=== PATIENT | female | born 1930 | race Caucasian/White ===

== ENCOUNTER 2016-06-04 12:53 | Emergency (ER) | payer OTHER, MEDICARE ==
[~2016-06-04] VITALS: Ht 167.6 cm; Wt 81.6 kg
[~2016-06-04 12:53] MED LIST: AUGMENTIN 500-1 EACH PO; ENALAPRIL MALEA20 M1 PO; LASIX20 M1 PO; LISINOPRIL30 M1 PO; PREDNISONE5 M1 PO; TYLENOL WITH C1 EACH PO; TYLENOL325 M1 PO
--- NOTE | 2016-06-04 16:18 | ED GENERAL ADULT ---
History of Present Illness General Chief Complaint: Lower Extremity Problems Stated Complaint: LEGS SWOLLEN, "PAINFUL TO THE TOUCH" Source: patient, family Exam Limitations: no limitations Allergies Coded Allergies: epinephrine (UNKNOWN PER PT 06/04/16) Reconcile Medications Amlodipine Besylate 5 MG TABLET 1 TAB PO DAILY BP (Reported) Aspirin (Ecotrin*) 81 MG TABLET.DR 1 TAB PO DAILY HEART/BLOOD (Reported) Cephalexin (Keflex) 250 MG CAPSULE 1 CAP PO 4 TIMES/DAY PRN CELLULITIS Enalapril Maleate 20 MG TABLET 1 TAB PO DAILY HEART (Reported) Furosemide (Lasix) 40 MG TABLET 1 TAB PO DAILY LEG EDEMA TAKE X FOUR DAYS Furosemide (Lasix) 20 MG TABLET 1 TAB PO DAILY Blood pressure Triage Note: PT STATES THAT SHE FELL YESTERDAY, LOSS HER BALANCE , WOKE THIS AM WITH BLE EDEMA. DENIES SOB. Triage Nurses Notes Reviewed? yes Onset: Abrupt Duration: constant Timing: single episode today Severity: moderate Severity Numbers: 5 No Modifying Factors: none HPI: Patient is a 86-year-old female with a past medical history of hypertension and mild leg swelling which she takes 20 mg of Lasix administered earlier today who presents emergency room with son in which patient lives in private residence by herself and which yesterday patient was in her normal state of health and is not using her cane in which she states that she misstepped and lost her balance and subsequent fell on her buttock region and subsequent fell backward striking the back of her head mildly to the floor. Patient states that she was on the ground for approximately 2 minutes used her lifeline in which then the son who lives next door came to patient stated immediately palpation up which she has had no pain no headache no neck pain back pain and is otherwise was able to AMBULATE without complications yesterday Patient however states that this morning she woke up and her legs were warm to touch painful and had complaints of significant increased swelling to the bilateral below the knee to the foot. Patient denies any mechanism injury to the lower extremities from the fall. Patient denies any fever chills shortness breath cough chest pain or pain jaw pain. Patient is able to ambulate with a cane without complications and has steady gait prior to arrival (AUDIE PATHAK,TRACEE) Vital Signs & Intake/Output Vital Signs & Intake/Output ED Intake and Output 06/05 0000 06/04 1200 Intake Total Output Total Balance Patient 180 lb Weight Past History Travel History Traveled to [place] past 21 day No Medical History Any Pertinent Medical History? see below for history Neurological: NONE EENT: NONE Cardiovascular: hypertension Respiratory: NONE Gastrointestinal: NONE Hepatic: NONE Renal: NONE Musculoskeletal: osteoarthritis, rheumatoid arthritis Psychiatric: anxiety Endocrine: NONE Blood Disorders: NONE Cancer(s): NONE CAVING GUIDE/Reproductive: HYSTERECTOMY History of MRSA: No History of VRE: No History of CDIFF: No Pneumonia Vaccine: 03/23/10 Surgical History Surgical History: hysterectomy, BILAT KNEE REPLACEMENT, L SHOULDER REPAIR Psychosocial History Who do you live with Patient/Self Services at Home None What is your primary language Kazakh Tobacco Use: Never used ETOH Use: denies use Illicit Drug Use: denies illicit drug use Family History Family History, If Any: SISTER FH: diabetes mellitus Hx Contributory? No (TRACEE BENTLEY) Review of Systems Review of Systems Constitutional: Reports: no symptoms. EENTM: Reports: no symptoms. Respiratory: Reports: no symptoms. Cardiovascular: Reports: see HPI, peripheral edema. GI: Reports: no symptoms. Genitourinary: Reports: no symptoms. Musculoskeletal: Reports: no symptoms. Skin: Reports: see HPI, erythema. Neurological/Psychological: Reports: no symptoms. Hematologic/Endocrine: Reports: no symptoms. Immunologic/Allergic: Reports: no symptoms. All Other Systems: Reviewed and Negative (TRACEE BENTLEY) Physical Exam Physical Exam General Appearance: no apparent distress, alert, comfortable Peripheral Pulses: 2+ dorsalis pedis (R), 2+ dorsalis pedis (L) Comments: Well-developed well-nourished person in no acute distress HEENT: Normal EENT exam, Neck: Supple, no lymphadenopathy, normal range of motion without pain or tenderness Back: Nontender, no CVA tenderness. Cardiovascular: Regular rate and rhythms no murmurs rubs or gallops, normal JVP Respiratory: Chest nontender. No respiratory distress.breath sounds clear to auscultation bilaterally Abdomen: Soft, nontender nondistended, no appreciable organomegaly. Normal bowel sounds. No ascites Extremity: +2 lower EXTREMITY bilateral nonpitting edema with below the knee and above the ankle erythema warmth and tenderness and swelling, no calf tenderness to palpation, normal and equal pulses. Lower extremity dermatomes intact pedal pulse +2 capillary refill less than 2 seconds Neuro: Alert oriented x3, motor sensory normal, Skin: No appreciable rash on exposed skin, skin is warm and dry. Psych: Mood and affect is normal, memory and judgment is normal. Core Measures ACS in differential dx? No CVA/TIA Diagnosis: No Severe Sepsis Present: No Septic Shock Present: No (TRACEE BENTLEY) Progress Differential Diagnoses I considered the following diagnoses in my evaluation of the patient: [ Cellulitis, DVT, abscess, compartment syndrome, CHF, nephritis, fracture] Diagnostic Imaging: Viewed by Me: Radiology Read, Ultrasound. Radiology Impression: no acute abnormality Initial ED EKG: none Comments: PATIENT: COLTON GIRON PRESENT AGE: 86 PATIENT ACCOUNT NO: [id number] : 32 LOCATION: [facility] ORDERING PHYSICIAN: TRACEE PATHAK SERVICE DATE: 06/04/16 EXAM TYPE: US - US-EXT BILAT VENOUS DOPPLER EXAMINATION: US TRIPLEX LOWER EXTREMITY, BILATERAL CLINICAL INFORMATION: Bilateral lower extremity swelling. COMPARISON: Ultrasound of the bilateral lower extremity veins 08/28/2015. TECHNIQUE: Color-flow triplex imaging with spectral analysis and compression Doppler were performed on the bilateral lower extremities. FINDINGS: Respiratory variation, normal compression and augmented flow are noted throughout the bilateral lower extremities. The visualized common femoral vein, femoral vein, profunda femoral vein, popliteal vein and mid calf peroneal and posterior tibial venous segments show no evidence of deep venous thrombosis. A 1.3 x 0.6 x 1.5 cm Howard's cyst is identified within the left popliteal fossa. IMPRESSION: No evidence of deep venous thrombosis involving the bilateral lower extremities. A 1.3 x 0.6 x 1.5 cm Howard's cyst is identified within the left popliteal fossa. PATIENT: COLTON GIRON PRESENT AGE: 86 PATIENT ACCOUNT NO: [id number] : 32 LOCATION: ER ORDERING PHYSICIAN: TRACEE PATHAK SERVICE DATE: 06/04/16 EXAM TYPE: RAD - XRY-PORTABLE CHEST XRAY EXAMINATION: XR PORTABLE CHEST CLINICAL INFORMATION: Lower extremity swelling. Evaluate for congestive heart failure. COMPARISON: Portable chest x-ray 08/27/2015. TECHNIQUE: Portable view of the chest was obtained. FINDINGS: The lungs are well-expanded and clear without focal airspace consolidation. No pleural effusions or pneumothoraces are identified. Cardiomediastinal contours are within normal limits. Soft tissues are unremarkable. No acute osseous abnormality is identified. Degenerative changes of the bilateral glenohumeral joints, left greater than right. Surgical screw along the left humeral head. Posterolateral deformity involving the distal left clavicle, adjacent to the left acromioclavicular joint, grossly unchanged. IMPRESSION: No acute pulmonary abnormality. No findings indicative of congestive heart failure. (TRACEE BENTLEY) Plan of Care: Orders Procedure Date/time Status BLOOD CULTURE 06/04 1616 Active COMPREHENSIVE METABOLIC PANEL 06/04 1615 Complete CBC WITHOUT DIFFERENTIAL 06/04 1615 Complete Laboratory Tests 06/04/161626: Anion Gap 12, Estimated GFR > 60, BUN/Creatinine Ratio 23.8, Glucose 95, Calcium 9.6, Total Bilirubin 0.6, AST 31, ALT 27, Alkaline Phosphatase 76, Total Protein 7.1, Albumin 4.2, Globulin 2.9, Albumin/Globulin Ratio 1.4, CBC w Diff NO MAN DIFF REQ, RBC 4.55, MCV 84.6, MCH 28.2, RDW 14.7 H, MPV 8.1, Gran % 62.6, Lymphocytes % 29.1, Monocytes % 5.1, Eosinophils % 2.3, Basophils % 0.9, Absolute Granulocytes 4.6, Absolute Lymphocytes 2.1, Absolute Monocytes 0.4, Absolute Eosinophils 0.2, Absolute Basophils 0.1, PUBS MCHC 33.3 Microbiology 06/04 1635 BLOOD: Blood Culture - RECD 06/04 1616 BLOOD: Blood Culture - RECD Patient comes in no apparent distress and denies any respiratory complaints. Chest x-ray is unremarkable no concerns of CHF at this time. Patient had bilateral lower extremity concerns of cellulitis no concerns of DVT at this time ultrasound was negative for results I discussed disposition and plan with family and patient and which they requested that they wanted to return home and manage the cellulitis and swelling at home. I discussed disposition and plan with Dr. Santo who agrees with disposition and plan patient had normal steady gait on discharge with cane Patient was strongly advised to follow discharge instructions and she will comply SON Christine comfortable with disposition plan as well (TRACEE BENTLEY) Departure Departure Disposition: HOME OR SELF CARE Condition: Stable Clinical Impression Primary Impression: Cellulitis of left leg Secondary Impressions: Cellulitis of leg, right, Leg edema Referrals: DELL WHITE,NICOLE Squires (PCP/Family) Additional Instructions: As discussed continue to always use your cane for fall prevention. Begin to elevate YOUR feet for swelling. Begin a prescription of Lasix as directed for the full course and after the prescription runs out resume previous Lasix prescription. Begin the prescription of Keflex as directed for the full course. Please follow-up with your primary care doctor in 2 days if she cannot be seen return to emergency room. If symptoms worsen or if you develop a new concerning symptom return to the emergency room immediately. Prescription waiting at [facility] pharmacy Departure Forms: Customer Survey General Discharge Information Prescriptions: Current Visit Scripts Cephalexin (Keflex) 1 CAP PO 4 TIMES/DAY PRN CELLULITIS #40 CAP Furosemide (Lasix) 1 TAB PO DAILY #4 TAB TAKE X FOUR DAYS (TRACEE BENTLEY) PA/OFFICE SYSTEM ANALYST Co-Sign Statement Statement: ED Attending supervision documentation- [X] I saw and evaluated the patient. I have also reviewed all the pertinent lab results and diagnostic results. I agree with the findings and the plan of care as documented in the PA's/OFFICE SYSTEM ANALYST's documentation. [] I have reviewed the ED Record and agree with the PA's/OFFICE SYSTEM ANALYST's documentation. [] Additions or exceptions (if any) to the PAs/OFFICE SYSTEM ANALYST's note and plan are summarized below: [] (MAHAMED WHITE,OBI Aden) Critical Care Note Critical Care Note Critical Care Time: non-applicable (TRACEE BENTLEY)
[2016-06-04] MEDS ORDERED: AMLODIPINE BESYL5 M1 PO (16:23)
[2016-06-04] MEDS ORDERED: ASPIRIN EC81 M1 PO (16:24)
[2016-06-04 16:46] VITALS: BP 179/81
[2016-06-04 16:51] LABS: ABSOLUTE BASOPHIL COUNT 0.1 /CUMM (0.0-0.2); ABSOLUTE EOSINOPHIL COUNT 0.2 /CUMM (0.0-0.7); ABSOLUTE GRANULOCYTE CT 4.6 /CUMM (1.4-6.5); ABSOLUTE LYMPH COUNT 2.1 /CUMM (1.2-3.4); ABSOLUTE MONOCYTE COUNT 0.4 /CUMM (0.10-0.60); BASOPHIL % 0.9 % (0.0-2.0); EOSINOPHIL % 2.3 % (0-5); GRANULOCYTE % 62.6 % (42.2-75.2); HEMATOCRIT 38.4 % (37-47); MEAN CORPUSCULAR HGB 28.2 PG (27.0-31.0); MEAN CORPUSCULAR HGB CONC 33.3 G/DL (33.0-37.0); MEAN CORPUSCULAR VOLUME 84.6 FL (81.0-99.0); MEAN PLATELET VOLUME 8.1 FL (7.4-10.4); PLATELET COUNT 309 /CUMM (130-400); RBC DISTRIBUTION WIDTH 14.7 % (11.5-14.5); RED BLOOD CELL CT 4.55 /CUMM (4.20-5.40); WHITE BLOOD CELL COUNT 7.3 /CUMM (4.8-10.8)
--- NOTE | 2016-06-04 16:55 | RADIOLOGY REPORT ---
EXAMINATION: XR PORTABLE CHEST CLINICAL INFORMATION: Lower extremity swelling. Evaluate for congestive heart failure. COMPARISON: Portable chest x-ray 08/27/2015. TECHNIQUE: Portable view of the chest was obtained. FINDINGS: The lungs are well-expanded and clear without focal airspace consolidation. No pleural effusions or pneumothoraces are identified. Cardiomediastinal contours are within normal limits. Soft tissues are unremarkable. No acute osseous abnormality is identified. Degenerative changes of the bilateral glenohumeral joints, left greater than right. Surgical screw along the left humeral head. Posterolateral deformity involving the distal left clavicle, adjacent to the left acromioclavicular joint, grossly unchanged. IMPRESSION: No acute pulmonary abnormality. No findings indicative of congestive heart failure.
--- NOTE | 2016-06-04 17:54 | ULTRASOUND REPORT ---
EXAMINATION: US TRIPLEX LOWER EXTREMITY, BILATERAL CLINICAL INFORMATION: Bilateral lower extremity swelling. COMPARISON: Ultrasound of the bilateral lower extremity veins 08/28/2015. TECHNIQUE: Color-flow triplex imaging with spectral analysis and compression Doppler were performed on the bilateral lower extremities. FINDINGS: Respiratory variation, normal compression and augmented flow are noted throughout the bilateral lower extremities. The visualized common femoral vein, femoral vein, profunda femoral vein, popliteal vein and mid calf peroneal and posterior tibial venous segments show no evidence of deep venous thrombosis. A 1.3 x 0.6 x 1.5 cm Howard's cyst is identified within the left popliteal fossa. IMPRESSION: No evidence of deep venous thrombosis involving the bilateral lower extremities. A 1.3 x 0.6 x 1.5 cm Howard's cyst is identified within the left popliteal fossa.
[2016-06-04] MEDS ORDERED: KEFLEX250 M1 PO (18:10)
[2016-06-04] MEDS ORDERED: LASIX40 M1 PO (18:10)
== END 2016-06-04 18:18 ==
LOC: ERH 12:53
PROVIDERS: Physician Assistant
DX: L03.116 Cellulitis of left lower limb (principal); L03.115 Cellulitis of right lower limb; R60.0 Localized edema
CPT/HCPCS: 87040; 93970

== ENCOUNTER 2016-06-07 14:20 | Inpatient (IN) | payer OTHER, MEDICARE ==
[~2016-06-07] VITALS: Ht 167.6 cm; Wt 81.6 kg
[~2016-06-07 14:20] MED LIST changes: +AMLODIPINE BESYL5 M1 PO; +ASPIRIN EC81 M1 PO; +KEFLEX250 M1 PO; +LASIX40 M1 PO
--- NOTE | 2016-06-07 14:28 | ED SKIN/ALLERGY COMPLAINT ---
History of Present Illness General Chief Complaint: Lower Extremity Problems Stated Complaint: LEG SWELLING Source: patient, family, old records Exam Limitations: no limitations Vital Signs & Intake/Output Vital Signs & Intake/Output Vital Signs Date Time Temp Pulse Resp B/P Pulse O2 O2 Flow FiO2 Ox Delivery Rate 06/08 0914 80 136/78 06/08 0914 80 136/78 06/08 0632 98.0 73 20 142/62 94 06/07 2140 98.2 83 20 158/82 96 Room Air 06/07 2000 99.1 83 20 156/72 97 Room Air 06/07 1803 97 Room Air 06/07 1647 98.0 89 16 158/72 96 Room Air 06/07 1426 97.4 88 20 144/75 96 Room Air ED Intake and Output 06/08 0000 06/07 1200 Intake Total 340 Output Total 300 Balance 40 Intake, IV 100 Intake, Oral 240 Output, Urine 300 Patient 180 lb Weight Allergies Coded Allergies: epinephrine (UNKNOWN PER PT 06/04/16) Triage Note: PT TO ED WITH WORSENING B/L LE SWELLING. PT SEEN IN ED SATURDAY FOR SAME, SENT HOME WITH PO ABX AND TOLD TO DOUBLE UP ON LASIX. ARRIVES BACK WITH WORSENING LEG SWELLING. Triage Nurses Notes Reviewed? yes Onset: Gradual Duration: getting worse Timing: recent history Severity: moderate Severity Numbers: 6 Location: extremities Possible Factors: no cause identified No Modifying Factors: none HPI: Patient is a 86-year-old female with a past medical history of hypertension anxiety and arthritis who presents emergency room with concerns of worsening bilateral leg swelling redness pain and warmth. Patient was seen and evaluated by me 2 days ago [place] emergency room for concerns of cellulitis which patient received chest x-ray with unremarkable findings ultrasound ruled out DVT and patient at this time showed no systemic signs patient was given Keflex in which patient was compliant with this medication and was advised to double her dosing of Lasix however patient returns with worsening redness pains and warmth. Patient denies any systemic symptoms of fever chills nausea cough shortness of breath chest pain. PT WAS compliant with her medications prescribed to HER-2 days ago (AUDIE PATHAK,TRACEE) Reconcile Medications Amlodipine Besylate 5 MG TABLET 1 TAB PO DAILY BP (Reported) Aspirin (Ecotrin*) 81 MG TABLET.DR 1 TAB PO DAILY HEART/BLOOD (Reported) Cholecalciferol (Vitamin D3) (Vitamin D3) 2,000 UNIT TABLET 1 TAB PO DAILY SUPPLEMENT (Reported) Enalapril Maleate 20 MG TABLET 1 TAB PO DAILY HEART (Reported) Furosemide (Lasix) 40 MG TABLET 1 TAB PO DAILY LEG EDEMA TAKE X FOUR DAYS Furosemide (Lasix) 20 MG TABLET 1 TAB PO DAILY Blood pressure (HAILY WHITE,ANEL) Past History Travel History Traveled to [place] past 21 day No Medical History Any Pertinent Medical History? 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 No (TRACEE BENTLEY) Review of Systems Review of Systems Constitutional: Reports: no symptoms. EENTM: Reports: no symptoms. Respiratory: Reports: no symptoms. Cardiovascular: Reports: see HPI, peripheral edema. GI: Reports: no symptoms. Genitourinary: Reports: no symptoms. Musculoskeletal: Reports: no symptoms. Skin: Reports: see HPI, erythema. Neurological/Psychological: Reports: no symptoms. Hematologic/Endocrine: Reports: no symptoms. Immunologic/Allergic: Reports: no symptoms. All Other Systems: Reviewed and Negative (TRACEE BENTLEY) Physical Exam Physical Exam General Appearance: no apparent distress, alert Skin: intact Skin Problem Location: lower extremities Comments: Well-developed well-nourished person in no acute distress HEENT: Normal EENT exam, Neck: Supple, no lymphadenopathy, normal range of motion without pain or tenderness Back: Nontender, no CVA tenderness. Cardiovascular: Regular rate and rhythms no murmurs rubs or gallops, normal JVP Respiratory: Chest nontender. No respiratory distress.breath sounds clear to auscultation bilaterally Abdomen: Soft, nontender nondistended, no appreciable organomegaly. Normal bowel sounds. No ascites Extremity: Bilateral below the knee and above the ankle erythema warmth and tenderness noted Bilateral pedal pulses intact dermatomes intact MYOtones intact Neuro: Alert oriented x3, motor sensory normal, Skin: No appreciable rash on exposed skin, skin is warm and dry. Psych: Mood and affect is normal, memory and judgment is normal. (AUDIE PATHAK,TRACEE) Progress Differential Diagnosis: abscess/cellulitis, anaphylaxis, angioedema, contact dermatitis, erythema multiforme, meningitis/sepsis, shingles, DVT, SEPSIS Plan of Care: Orders Procedure Date/time Status Heart Healthy Diet 06/08 B Active Lab Add-on Test 06/08 0802 Active URIC ACID 06/08 0605 Complete CBC WITHOUT DIFFERENTIAL 06/08 06 Complete B-TYPE NATRIURETIC PEP (BNP) 06/08 06 Complete BASIC ELECTROLYTES PLUS BUN&CR 06/08 06 Complete Vital Signs 06/07 2046 Active Teach/Educate 06/07 2046 Active Nutritional Intake, Monitor 06/07 2046 Active Isolation 06/07 2046 Active Intake & Output 06/07 2046 Active Patient Care Conference 06/07 2046 Active Activity/Ambulation 06/07 2046 Active Pathway - chart 06/07 1838 Active House Staff 06/07 1838 Active Patient Data 06/07 1838 Active Code Status 06/07 1838 Active Intake & Output 06/07 1802 Active Admit to inpatient 06/07 1727 Active Patient Data 06/07 1725 Active EKG 06/07 1601 Active COMPREHENSIVE METABOLIC PANEL 06/07 1538 Complete CBC WITHOUT DIFFERENTIAL 06/07 1538 Complete Current Medications Sig/Lisa Start time Last Medication Dose Stop Time Status Admin Ceftriaxone Sodium 1,000 MG Q12 06/08 1000 CAN (Rocephin) Furosemide 40 MG DAILY 06/08 1000 CAN (Lasix) Acetaminophen 1,000 MG Q12P PRN 06/07 2200 AC (Ofirmev) Hydromorphone HCl 0.5 MG Q4P PRN 06/07 2200 AC (Dilaudid) Potassium Chloride 40 MEQ BID 06/07 2200 CAN (K-Dur) 06/08 2201 Acetaminophen 650 MG Q6P PRN 06/07 1845 AC (Tylenol) Laboratory Tests 06/08/16 0605: Anion Gap 10, Estimated GFR > 60, BUN/Creatinine Ratio 27.1 H, Uric Acid 6.4 H , Ekg-U-Eqpmsctkkpo Pept 502 H, CBC w Diff NO MAN DIFF REQ, RBC 4.09 L, MCV 84.4, MCH 28.8, RDW 14.0, MPV 8.6, Gran % 62.7, Lymphocytes % 26.1, Monocytes % 7.7, Eosinophils % 2.2, Basophils % 1.3, Absolute Granulocytes 3.6, Absolute Lymphocytes 1.5, Absolute Monocytes 0.4, Absolute Eosinophils 0.1, Absolute Basophils 0.1, PUBS MCHC 34.2 06/07/16 1630: Anion Gap 11, Estimated GFR 60, BUN/Creatinine Ratio 32.2 H, Glucose 101 H, Calcium 9.4, Total Bilirubin 0.9, AST 27, ALT 28, Alkaline Phosphatase 74, Total Protein 6.9, Albumin 4.0, Globulin 2.9, Albumin/Globulin Ratio 1.4, CBC w Diff NO MAN DIFF REQ, RBC 4.32, MCV 84.2, MCH 28.7, RDW 14.3, MPV 8.1, Gran % 72.1, Lymphocytes % 18.0 L, Monocytes % 7.4, Eosinophils % 1.4, Basophils % 1.1, Absolute Granulocytes 6.0, Absolute Lymphocytes 1.5, Absolute Monocytes 0.6, Absolute Eosinophils 0.1, Absolute Basophils 0.1, PUBS MCHC 34.0 Diagnostic Imaging: Viewed by Me: Radiology Read. CXR Impression: no acute abnormality, no infiltrates Initial ED EKG: normal p-waves, normal QRS complex, 87 BPM, NSR, RBBB Comments: PATIENT: COLTON GIRON PRESENT AGE: 86 PATIENT ACCOUNT NO: [id number] : 32 LOCATION: [facility] ORDERING PHYSICIAN: TRACEE PATHAK SERVICE DATE: 06/07/16160 EXAM TYPE: RAD - XRY-PORTABLE CHEST XRAY EXAMINATION: XR PORTABLE CHEST CLINICAL INFORMATION: Cellulitis COMPARISON: 06/04/2016 TECHNIQUE: Portable view of the chest was obtained. FINDINGS: The lungs are well expanded. There is no consolidation, edema, or effusion. No pneumothorax. The cardiomediastinal silhouette is unchanged, remaining mildly prominent. No acute osseous abnormality. Degenerative changes of the shoulders. IMPRESSION: No acute pulmonary findings. (AUDIE PATHAK,TRACEE) Diagnostic Imaging: Viewed by Me: Radiology Read. Discussed w/RAD: Radiology Read. Comments: PATIENT: COLTON GIRON PRESENT AGE: 86 PATIENT ACCOUNT NO: [id number] : 32 LOCATION: [facility] ORDERING PHYSICIAN: TRACEE PATHAK SERVICE DATE: 06/07/16 EXAM TYPE: RAD - XRY-ANKLE 3 OR MORE VIEWS L EXAMINATION: XR ANKLE, LEFT CLINICAL INFORMATION: Pain. Suspected fracture. COMPARISON: Lower extremity ultrasound 06/04/2016. TECHNIQUE: 4 views of the left ankle. FINDINGS: There is diffuse stranding within the subcutaneous soft tissues of the left lower extremity with more focal swelling located over the lateral malleolus. There is no acute fracture or dislocation. No worrisome lytic changes. The ankle mortise is intact. Mild diffuse demineralization of bone of the midfoot and distal foot may indicate a manifestation of disuse. Possible mixed lytic and sclerotic changes within the base of the first metatarsal. There is no joint effusion. IMPRESSION: There is diffuse subcutaneous stranding within the distal left lower extremity that may represent a manifestation of edema, venous insufficiency, or cellulitis. There is more focal soft tissue swelling over the left lateral malleolus with no clear evidence of acute fracture or worrisome lytic changes within the underlying bone. Although only partially visualized within the [id number] this examination there appear to be mixed lytic and sclerotic changes within the base of the first metatarsal therefore a dedicated radiographic series of the left foot may be obtained for better anatomic characterization of this finding. DICTATED BY: CATINA RAMIRES MD DATE/TIME DICTATED:06/07/162137 GIS COORDINATOR:WILLIS DATE/TIME TRANSCRIBED:06/07/162137 CONFIDENTIAL, DO NOT COPY WITHOUT APPROPRIATE AUTHORIZATION. <Electronically signed in Other Vendor System> SIGNED BY: CATINA RAMIRES MD 06/07 (ANEL JOHANSEN MD) Departure Departure Disposition: STILL A PATIENT Condition: Stable Clinical Impression Primary Impression: Cellulitis of leg Referrals: DELL WHITE,NICOLE Squires (PCP/Family) Departure Forms: Customer Survey General Discharge Information Admission Note Spoke With: STORMY MORLEY MD Documentation of Exam: Documentation of any treatments & extenuating circumstances including Concerns Regarding Discharge (functional status, medication knowledge or non-compliance, living conditions, etc.) that warrant an admission rather than observation: [ Discussed patient with Dr. MORLEY who agrees with [facility] admission for concerns of IV antibiotics in which patient HAS failed outpatient ABX FOR concerning worsening cellulitis. Patient requires monitoring of symptoms outpatient treatment at this time would be medically harmful] (AUDIE PATHAK,TRACEE) PA/HIGH MAN Co-Sign Statement Statement: ED Attending supervision documentation- [X] I saw and evaluated the patient. I have also reviewed all the pertinent lab results and diagnostic results. I agree with the findings and the plan of care as documented in the PA's/HIGH MAN's documentation. [X] I have reviewed the ED Record and agree with the PA's/HIGH MAN's documentation. [] Additions or exceptions (if any) to the PAs/HIGH MAN's note and plan are summarized below: [] (HAILY WHITE,ANEL)
--- NOTE | 2016-06-07 15:22 | NUR ---
TRIAGE NOTE ACKNOWLEDGED AND RN CARE ASSUMED PT RETURNS TODAY WITH LOWER EXTREMITY EDEMA. LOWER EXTREMITIES REDDENED, LEFT WORSE THAN RIGHT. LEFT LOWER LEG WARM TO TOUCH, PAINFUL AND REDDENED AND EDEMATOUS. PT WAITING TO BE EVALUATED
[2016-06-07] MEDS ORDERED: VITAMIN D32000 UNI1 PO (15:30)
--- NOTE | 2016-06-07 16:17 | NUR ---
PT EVALUATED BY PA STUDENT AND TRACEE PATHAK
--- NOTE | 2016-06-07 16:38 | NUR ---
BLOOD DRAWN DIRECTED 20 G LOUISA PLACED IN LEFT WRIST
[2016-06-07 16:51] LABS: ABSOLUTE BASOPHIL COUNT 0.1 /CUMM (0.0-0.2); ABSOLUTE EOSINOPHIL COUNT 0.1 /CUMM (0.0-0.7); ABSOLUTE LYMPH COUNT 1.5 /CUMM (1.2-3.4); ABSOLUTE MONOCYTE COUNT 0.6 /CUMM (0.10-0.60); BASOPHIL % 1.1 % (0.0-2.0); EOSINOPHIL % 1.4 % (0-5); GRANULOCYTE % 72.1 % (42.2-75.2); HEMATOCRIT 36.4 % (37-47); MEAN CORPUSCULAR HGB 28.7 PG (27.0-31.0); MEAN CORPUSCULAR VOLUME 84.2 FL (81.0-99.0); MEAN PLATELET VOLUME 8.1 FL (7.4-10.4); PLATELET COUNT 290 /CUMM (130-400); RBC DISTRIBUTION WIDTH 14.3 % (11.5-14.5); RED BLOOD CELL CT 4.32 /CUMM (4.20-5.40); WHITE BLOOD CELL COUNT 8.3 /CUMM (4.8-10.8)
--- NOTE | 2016-06-07 17:02 | RADIOLOGY REPORT ---
EXAMINATION: XR PORTABLE CHEST CLINICAL INFORMATION: Cellulitis COMPARISON: 06/04/2016 TECHNIQUE: Portable view of the chest was obtained. FINDINGS: The lungs are well expanded. There is no consolidation, edema, or effusion. No pneumothorax. The cardiomediastinal silhouette is unchanged, remaining mildly prominent. No acute osseous abnormality. Degenerative changes of the shoulders. IMPRESSION: No acute pulmonary findings.
--- NOTE | 2016-06-07 17:44 | History & Physical ---
LORI WHITE,[facility] 06/07/16 1744: General Information and HPI History of Present Illness: Ms. Giron is a 86-year-old lady with a PMH significant for DJD and hypertension, last hospitalized in August 2015 for UTI, who presents with worsening edema and erythema in the bilateral lower extremities (worse on the left) since 4 days ago. On Saturday the patient noticed swelling and redness with tenderness and warmness in her distal legs, especially around the ankles. Patient denies any injury or trauma to the legs prior although she does report a mechanical fall that day while walking backwards. No LOC or head injury. Patient was seen in ED the next day and DVTs were ruled out on B/L venous Doppler. She was subsequently discharged on Keflex and Lasix at increased dose of 40mg. Since then her pain has improved but the erythema and edema continued to worsen and spread proximally toward the shins despite being complaint with the antibiotics. ROS is grossly negative. She denies any f/c, chest pain, palpitations, abdominal pain, constipation, n/v/c/d. Patient has had no recent illness, travel, or sick contact. She lives alone and uses a cane or walker to ambulate. She is fully independent with her ADL's. Denies any tobacco/alcohol use. PCP/Joiner Apprentice - Dr. Sharpe Business Sales Consultant - Dr. Fall Full code. Allergies/Medications Allergies: Coded Allergies: epinephrine (UNKNOWN PER PT 06/04/16) Home Med list Amlodipine Besylate 5 MG TABLET 1 TAB PO DAILY BP (Reported) Aspirin (Ecotrin*) 81 MG TABLET.DR 1 TAB PO DAILY HEART/BLOOD (Reported) Cholecalciferol (Vitamin D3) (Vitamin D3) 2,000 UNIT TABLET 1 TAB PO DAILY SUPPLEMENT (Reported) Enalapril Maleate 20 MG TABLET 1 TAB PO DAILY HEART (Reported) Furosemide (Lasix) 40 MG TABLET 1 TAB PO DAILY LEG EDEMA TAKE X FOUR DAYS Furosemide (Lasix) 20 MG TABLET 1 TAB PO DAILY Blood pressure Past History Travel History Traveled to [place] past 21 day No Medical History Neurological: NONE EENT: NONE Cardiovascular: hypertension Respiratory: NONE Gastrointestinal: NONE Hepatic: NONE Renal: NONE Musculoskeletal: osteoarthritis, rheumatoid arthritis Psychiatric: anxiety Endocrine: NONE Blood Disorders: NONE Cancer(s): NONE DIRECTOR OF STRATEGIC SOURCING/Reproductive: HYSTERECTOMY History of MRSA: No History of VRE: No History of CDIFF: No Pneumonia Vaccine: 03/23/10 Surgical History Surgical History: hysterectomy, BILAT KNEE REPLACEMENT, L SHOULDER REPAIR Past Family/Social History Family History Relations & Conditions if any SISTER FH: diabetes mellitus Psychosocial History Where do you live? Home Who Do You Live With? self Services at Home: None ETOH Use: denies use Illicit Drug Use: denies illicit drug use Functional Ability ADLs Independent: dressing, eating, toileting, bathing. Ambulation: walker IADLs Independent: housework, food prep, telephone. Review of Systems Review of Systems Constitutional: Reports: see HPI. Exam & Diagnostic Data Last 24 Hrs of Vital Signs/I&O Vital Signs Date Time Temp Pulse Resp B/P Pulse O2 O2 Flow FiO2 Ox Delivery Rate 06/07 1999 99.1 83 20 156/72 97 Room Air 06/07 1803 97 Room Air 06/07 1647 98.0 89 16 158/72 96 Room Air 06/07 1426 97.4 88 20 144/75 96 Room Air Intake & Output 06/07 1600 06/07 0800 06/07 0000 Intake Total Output Total Balance Patient 81.647 kg Weight Physical Exam General Appearance Alert, Oriented X3, Cooperative, No Acute Distress Skin Prominent swelling and extensive erythema from the ankle to shins bilaterally. Warm to touch. Tenderness to palpation. HEENT Atraumatic, PERRLA, EOMI, Mucous Membr. moist/pink Neck Supple, No JVD, +2 Carotid Pulse wo Bruit, No LAD Cardiovascular Regular Rate, Normal S1, Normal S2, No Murmurs, Gallops, Rubs Lungs Clear to Auscultation, Normal Air Movement Abdomen Normal Bowel Sounds, Soft, No Tenderness Neurological Normal Speech, Strength at 5/5 X4 Ext, Sensation Intact, Cranial Nerves 3-12 NL Extremities Edema and erythema in BLEs Vascular Normal Pulses, Pulses Symmetrical Last 24 Hrs of Labs/Tony: Laboratory Tests 06/07/16 1630: Anion Gap 11, Estimated GFR 60, BUN/Creatinine Ratio 32.2 H, Glucose 101 H, Calcium 9.4, Total Bilirubin 0.9, AST 27, ALT 28, Alkaline Phosphatase 74, Total Protein 6.9, Albumin 4.0, Globulin 2.9, Albumin/Globulin Ratio 1.4, CBC w Diff NO MAN DIFF REQ, RBC 4.32, MCV 84.2, MCH 28.7, RDW 14.3, MPV 8.1, Gran % 72.1, Lymphocytes % 18.0 L, Monocytes % 7.4, Eosinophils % 1.4, Basophils % 1.1, Absolute Granulocytes 6.0, Absolute Lymphocytes 1.5, Absolute Monocytes 0.6, Absolute Eosinophils 0.1, Absolute Basophils 0.1, PUBS MCHC 34.0 Assessment/Plan Assessment: 86-year-old lady with a PMH significant for DJD and hypertension, last hospitalized in August 2015 for UTI, who presents with worsening edema and erythema in the bilateral lower extremities (worse on the left) since 4 days ago , most likely 2/2 cellulitis. # Bilateral leg edema and erythema most likely 2/2 cellulitis * Admit to general medicine service * Vital signs every shift * Cefazolin 1g IV Q8 * Lasix 40mg IV daily * Send pancultures * Check CBC daily, trend WBC * Adequate pain control * Leg elevation * Left ankle X-ray to r/o fracture, osteomyelitis, etc. # Recent fall * Check orthostatic hypotension * Follow echocardiogram * Check pro-BNP # Hypokalemia * Replete potassium * Recheck BEP tomorrow # Hypertension * Lasix as above * Cont home meds Norvasc 5mg QD and lisinopril 20mg QD - Heart healthy diet - Moderate pain pathway - DVTppx with Lovenox - DNR/I As Ranked By This Provider Problem List: 1. Leg edema 2. Cellulitis of leg, right 3. Cellulitis of left leg 4. Hypertension Core Measures/Miscellaneous Acute Coronary Syndrome ACS Diagnosis: No Cerebrovascular Accident CVA/TIA Diagnosis: No Congestive Heart Failure CHF Diagnosis: No Venous Thromboembolism VTE Risk Factors: Age > 40 VTE Prophylaxis Ordered Inpt: Pharm- [facility] prophylaxis d/t: LE Edema No VTE Pharm Prophylaxis d/t: No contraindications VTE Diagnosis: No VTE Type: NONE VTE Confirmed by (Test): NONE Severe Sepsis Severe Sepsis Present: No Septic Shock Septic Shock Present: No Miscellaneous Documentation Attending Case Discussed With: PEYMAN WHITE,[facility] Primary Care Physician: NICOLE SHARPE MD Patient sees these Specialists Rheum PCP [facility] Level of Patient Care: General Medicine DIANA HERZOG 06/07/16 9393: General Information and HPI MD Statement: I have seen and personally examined COLTON GIRON and documented this H&P. The patient is a 86 year old F who presented with a patient stated chief complaint of bilateral lower extremity edema, warmth and swelling for 4-5 days [ ]. Source of Information: patient Exam Limitations: no limitations Resident Review Statement Resident Statement: examined this patient, discussed with project internship, agreed with project internship Other Findings: Patient is a pleasant 86-year-old woman with past medical history significant for severe degenerative joint disease, arthritis, hypertension and recent ER visit on Saturday with worsening lower extremity edema along with erythema and pain was treated as cellulitis after ruling out DVT with Doppler ultrasound and seNt her home with oral antibiotics but came back today with no improvement rather worsening of her erythema and edema left leg more than right. She had 2 mechanical falls recently 1 almost 4 days ago and one a week before but denied any dizziness, palpitations, loss of consciousness or injury before but after both events. She denied Any trauma, injury, tick bite, any local skin disease including eczema, wound or ulcer. She denied chest pain, palpitations, shortness of breath, any urinary or bowel complaints. She denied fever, chills or any recent sick contacts. Patient lives at home but psychiatric nursing assistant came almost every day but she is independent in her activities and use walker/cane for ambulation. Vital signs on admission were temperature 97.4, pulse 88, respiratory rate 20, blood pressure 1 4475 and she is saturating 96% on room air. Initial labs showed WBC count 8.3, hemoglobin 12.4, hematocrit 36.4, platelet count 290, sodium 137, potassium 3.3, chloride 95, BUN/creatinine 29 and creatinine 0.9. Chest x-ray showed no acute bony findings Bilateral lower extremity venous Doppler from the was negative for any evidence of DVT On physical examination She was alert and oriented 3 Atraumatic Neck supple Chest clear to auscultate Heart S1-S2 with no added sounds Abdomen soft Extremities moderate bilateral lower extremity edema with erythema and warmth up to mid cough left more than right, no obvious skin wound or infection noticed Assessment and plan 86 year old pleasant female with severe degenerative joint disease and hypertension is admitted after failure of oral outpatient antibiotic therapy for cellulitis with negative bilateral lower extremity Dopplers for any evidence of DVT. We will admit patient on general medical floor with daycare for the following problems Problem #1 worsening bilateral lower extremity edema with erythema and warmth most likely secondary to cellulitis due to underlying worsening edema -Vital signs every shift -We'll check orthostatic hypotension -Elevate extremities -We'll change to oral Lasix to IV and we will replete potassium and will continue potassium supplement while increasing dose of Lasix -We will order echocardiogram for baseline cardiac status -We will request cardiology evaluation to address worsening lower extremity edema and underlying congestive heart failure any. We will order proBNP -Adequate analgesia - Will do x ray ankle for any intra articular effusion or fracture. -IV cefazolin 1 g every 8 hours Problem #2 history of hypertension We will continue her home medications #3 hypokalemia most likely due to recent increase in her Lasix We will replete potassium accordingly and will recheck BMP in a.m. heart Healthy diet Patient is DNI DNR Pharmacological DVT prophylaxis EDGARDO,AARTEE 06/08/16 0307: Attending MD Review Statement Attending Statement Attending MD Statement: examined this patient, discuss w/resident/PA/FELT CHECKER, discussed with family, reviewed images, amended to note Attending Assessment/Plan: CC: Worsening left lower extremity swelling and redness PMHx: Arthritis (?RA), HTN Patient was in ER on June 04, for left swollen leg and painful to touch. She was investigated with chest x-ray and bilateral lower extremity Doppler ultrasound and then was discharged with by mouth Keflex and Lasix. Patient comes back again with no relief, in fact worsening of left lower leg pain, redness, swelling. Maximum pain is over lateral aspect of ankle. Otherwise 14 point ROS negative. Patient has bilateral knee replacement but no hardware in left ankle. Patient had 2 mechanical falls in last week. On exam: T max 99.1, HR, RR, BP, O2 saturation in acceptable range. On exam: A O reflex. RS: Clear to auscultation bilaterally. Abdomen: Soft, NT, ND bowel sounds present bilateral lower extremities are edematous left more than right, left lower extremity redness, warmth, tenderness from mid guzmán up to ankle, left ankle appears swollen, mildly decreased ROM secondary to pain, peripheral pulses and perfusion intact Labs: WBC 8.3, hemoglobin 12.4, potassium 3.3, bicarbonate 31, BUN 29 otherwise unremarkable. CXR was reported in ER: No acute pulmonary findings. Previous imaging reviewed no evidence of DVT. Assessment and plan: #1 left lower leg cellulitis: Rule out septic joint as left ankle is swollen, tender, mildly decreased autoimmune. X-ray left ankle was ordered which does not show any joint effusion but in fact shows soft tissue swelling over lateral malleolus worrisome for lactic changes, mixed Lydick and sclerotic changes at the base of first metatarsal. Continue IV cefazolin, leg elevation, obtain dedicated left foot x-ray in a.m., pain control, cold compresses. #2 bilateral lower extremity edema: Patient's previous 2-D echo was reviewed which was in 2016 had diastolic dysfunction, patient does not have any signs of acute heart failure CXR is negative auscultation is normal no JVD. Patient may benefit from 2-D echo if okay with cardiology, inform mountain bike guide patient being here. Continue her home doses of by mouth Lasix 20 mg daily, patient is also on amlodipine which may be contiguity into the problem. #3 hypokalemia: Replete potassium, probably secondary to over diuresis along with increased bicarbonate and BUN. Decreased the dose of Lasix to her previous home doses that is 20 mg by mouth daily. #4 hypertension continue her home medications amlodipine and ACEI, #5 DVT prophylaxis with Lovenox, Adequate pain control.
--- NOTE | 2016-06-07 18:39 | NUR ---
ROOM 220 NURSE INFORMED
--- NOTE | 2016-06-07 19:29 | NUR ---
PT ADMITTED TO ROOM # 220. ORAL REPORT GIVEN TO SILVA CHRISTIANSON ALL V.S.S. CLINICAL STATUS UNCHANGED. PT READY FOR TRANSFER
--- NOTE | 2016-06-07 20:12 | NUR ---
DISTRIBUTION CALLED TO TRANSFER PT PT WILL GO TO XRAY FIRST.
--- NOTE | 2016-06-07 20:45 | NUR ---
PT ARRIVED TO FLOOR ROOM 220-2 VIA STRETCHER AT 2044. UPON ARRIVAL, PT ALERT AND ORIENTED X2. PT FORGETFUL AT TIMES. CELLULITUS TO BLE MARKED FROM ER. OTHERWISE SKIN INTACT. ON RA. LUNGS CLEAR. PT STATED SHE HAS A HX OF FALLS, BED ALARM IS IN PLACE. PT ASSSITED TO THE BSC, AX1 OOB. #20 LH INFUSING EASILY. PT ORIENTED TO CALL IRBY, STAFF, AND SURROUNDINGS. ORDERS ACKNOWLEDGED. WILL CONTINUE TO MONITOR.
[2016-06-07 21:40] VITALS: BP 158/82
--- NOTE | 2016-06-07 21:48 | RADIOLOGY REPORT ---
EXAMINATION: XR ANKLE, LEFT CLINICAL INFORMATION: Pain. Suspected fracture. COMPARISON: Lower extremity ultrasound 06/04/2016. TECHNIQUE: 4 views of the left ankle. FINDINGS: There is diffuse stranding within the subcutaneous soft tissues of the left lower extremity with more focal swelling located over the lateral malleolus. There is no acute fracture or dislocation. No worrisome lytic changes. The ankle mortise is intact. Mild diffuse demineralization of bone of the midfoot and distal foot may indicate a manifestation of disuse. Possible mixed lytic and sclerotic changes within the base of the first metatarsal. There is no joint effusion. IMPRESSION: There is diffuse subcutaneous stranding within the distal left lower extremity that may represent a manifestation of edema, venous insufficiency, or cellulitis. There is more focal soft tissue swelling over the left lateral malleolus with no clear evidence of acute fracture or worrisome lytic changes within the underlying bone. Although only partially visualized within the [id number] this examination there appear to be mixed lytic and sclerotic changes within the base of the first metatarsal therefore a dedicated radiographic series of the left foot may be obtained for better anatomic characterization of this finding.
--- NOTE | 2016-06-08 03:09 | Admission Certification ---
Admission Certification Certification Statement - As attending physician, I certify that at the time of - admission, based on clinical presentation, severity of - symptoms, need for further diagnostic testing and - therapeutic interventions, and risk of adverse outcomes - without in-hospital treatment, in my clinical assessment, - this patient requires an acute hospital stay for a minimum - of two nights or longer. I have also considered psychsocial - factors such as support system, advanced age, financial - issues, cognitive issues, and failed out-patient treatments, - past re-admission history, safety of patient, and lack of - compliance as applicable. Specific rationale supporting this admission is: left lower extremity cellulitis
--- NOTE | 2016-06-08 06:07 | PN- Housestaff ---
LORI WHITE,MARISELA 06/08/16 0607: Subjective Follow-up For: Leg swelling Subjective: Patient seen and examined at bedside. Resting comfortably in the recliner. No new complaints since the admission yesterday but reports more tenderness in the LLE. Otherwise no chest pain, dyspnea, palpitations, abdominal pain, n/v/c/d. Review of Systems Constitutional: Reports: see HPI. Objective Last 24 Hrs of Vital Signs/I&O Vital Signs Date Time Temp Pulse Resp B/P Pulse O2 O2 Flow FiO2 Ox Delivery Rate 06/08 0914 80 136/78 06/08 0914 80 136/78 06/08 0632 98.0 73 20 142/62 94 06/07 2140 98.2 83 20 158/82 96 Room Air 06/07 2000 99.1 83 20 156/72 97 Room Air 06/07 1803 97 Room Air 06/07 1647 98.0 89 16 158/72 96 Room Air 06/07 1426 97.4 88 20 144/75 96 Room Air Intake & Output 06/08 1600 06/08 0800 06/08 0000 Intake Total 250 340 Output Total 225 550 500 Balance -225 -300 -160 Intake, IV 10 100 Intake, Oral 240 240 Number 1 Bowel Movements Output, Urine 225 550 500 Patient 81.647 kg Weight Physical Exam General Appearance: Alert, Oriented X3, Cooperative, No Acute Distress Other Physical Findings: Skin Prominent swelling and extensive erythema from the ankle to shins bilaterally. Warm to touch. Tenderness to palpation. HEENT Atraumatic, PERRLA, EOMI, Mucous Membr. moist/pink Neck Supple, No JVD, +2 Carotid Pulse wo Bruit, No LAD Cardiovascular Regular Rate, Normal S1, Normal S2, No Murmurs, Gallops, Rubs Lungs Clear to Auscultation, Normal Air Movement Abdomen Normal Bowel Sounds, Soft, No Tenderness Neurological Normal Speech, Strength at 5/5 X4 Ext, Sensation Intact, Cranial Nerves 3-12 NL Extremities Edema and erythema in BLEs Vascular Normal Pulses, Pulses Symmetrical Current Medications: Current Medications Sig/Lisa Start time Last Medication Dose Route Stop Time Status Admin Acetaminophen 1,000 MG Q12P PRN 06/07 2200 AC IV Acetaminophen 650 MG Q6P PRN 06/07 1845 AC PO Amlodipine Besylate 5 MG DAILY 06/08 1000 AC 06/08 PO 0914 Aspirin Buffered 81 MG DAILY 06/08 1000 AC 06/08 PO 0914 Cefazolin Sodium 1,000 MG IQ8 06/08 0000 DC 06/08 IV 0914 Ceftriaxone Sodium 1,000 MG Q12 06/08 1000 CAN IV Ceftriaxone Sodium 0 .STK-MED ONE 06/07 1737 DC .ROUTE Ceftriaxone Sodium 1,000 MG ONCE ONE 06/07 1615 DC 06/07 IV 06/07 1616 1741 Furosemide 40 MG DAILY 06/08 1000 CAN IV Furosemide 20 MG DAILY 06/08 1000 AC 06/08 PO 0914 Heparin Sodium 5,000 UNIT Q8 06/07 2200 AC 06/08 (Porcine) SC 0548 Hydromorphone HCl 0.5 MG Q4P PRN 06/07 2200 AC IV Lisinopril 20 MG DAILY 06/08 1000 AC 06/08 PO 0914 Potassium Chloride 40 MEQ ONCE ONE 06/08 0600 DC 06/08 PO 06/08 0601 0547 Potassium Chloride 40 MEQ BID 06/07 2200 CAN PO 06/08 2200 Potassium Chloride 0 .STK-MED ONE 06/074 DC PO Potassium Chloride 40 MEQ ONCE ONE 06/07 1930 DC 06/07 PO 06/07 193 195 Prednisone 15 MG BID 06/08 2200 AC PO Prednisone 20 MG DAILY 06/08 1100 DC 06/08 PO 1127 Last 24 Hrs of Lab/Tony Results Last 24 Hrs of Labs/Mics: Laboratory Tests 06/08/16 0605: Anion Gap 10, Estimated GFR > 60, BUN/Creatinine Ratio 27.1 H, Uric Acid 6.4 H , [id number] Pept 502 H, CBC w Diff NO MAN DIFF REQ, RBC 4.09 L, MCV 84.4, MCH 28.8, RDW 14.0, MPV 8.6, Gran % 62.7, Lymphocytes % 26.1, Monocytes % 7.7, Eosinophils % 2.2, Basophils % 1.3, Absolute Granulocytes 3.6, Absolute Lymphocytes 1.5, Absolute Monocytes 0.4, Absolute Eosinophils 0.1, Absolute Basophils 0.1, PUBS MCHC 34.2 06/07/16 1630: Anion Gap 11, Estimated GFR 60, BUN/Creatinine Ratio 32.2 H, Glucose 101 H, Calcium 9.4, Total Bilirubin 0.9, AST 27, ALT 28, Alkaline Phosphatase 74, Total Protein 6.9, Albumin 4.0, Globulin 2.9, Albumin/Globulin Ratio 1.4, CBC w Diff NO MAN DIFF REQ, RBC 4.32, MCV 84.2, MCH 28.7, RDW 14.3, MPV 8.1, Gran % 72.1, Lymphocytes % 18.0 L, Monocytes % 7.4, Eosinophils % 1.4, Basophils % 1.1, Absolute Granulocytes 6.0, Absolute Lymphocytes 1.5, Absolute Monocytes 0.6, Absolute Eosinophils 0.1, Absolute Basophils 0.1, PUBS MCHC 34.0 Assessment/Plan Assessment: 86-year-old lady with a PMH significant for DJD and hypertension, last hospitalized in August 2015 for UTI, who presents with worsening edema and erythema in the bilateral lower extremities (worse on the left) since 4 days ago , most likely 2/2 gout vs. cellulitis. # Bilateral leg edema and erythema most likely 2/2 acute gout Patient presents with swelling and redness with tenderness and warmness in her distal legs, especially around the ankles, significantly worse on the LLE. Although cellulitis was initially supsected, her bilateral presentation is more concerning for a systemic disease in the light of her diffuse joint arthritis. It is possible that patient may have rheumatoid arthritis but acute gout is a more likely diagnosis given that her uric acid is slightly elevated at 6.4 this admission. Thus we will hold the patient off the antibiotics which she was started in ED and treat her for gout and RA for now with steroid. * Discontinue Cefazolin 1g IV Q8 * Start prednisone 15mg PO BID (recommended dose per UpToDate is 30-50mg/day) * Check ESR * Cont home med Lasix 20mg PO daily * Follow blood cx x 2 - NGTD * Check CBC daily, trend WBC * Adequate pain control * Leg elevation * Left ankle X-ray to r/o fracture, osteomyelitis, etc. # Recent fall * Check orthostatic hypotension * Follow echocardiogram - grossly normal * Check pro-BNP - slightly elevated at 502 # Hypokalemia - Resolved * Replete potassium * Check BEP daily # Hypertension * Lasix as above * Cont home meds Norvasc 5mg QD and lisinopril 20mg QD - Heart healthy diet - Moderate pain pathway - DVTppx with Lovenox - DNR/I Problem List: 1. Leg edema 2. Hypertension 3. Frequent falls Pain Ratin Pain Location: BLEs Pain Goal: Remain pain free Pain Plan: Mild pathway Tomorrow's Labs & Rationales: CBC to monitor WBC for infection BEP to monitor renal fx and electrolytes NUBIA SONI MD 06/08/16 1159: Attending MD Review Statement Attending Statement Attending MD Statement: examined this patient, discuss w/resident/PA/UX DESIGN LEAD, agreed w/resident/PA/UX DESIGN LEAD, reviewed EMR data (avail), discussed with nursing, discussed with case mgmt, amended to note Attending Assessment/Plan: Patient seen and examined. She is sitting up comfortably in her chair and not in any acute distress. She reports diffuse joint pain on and off particularly in her fingers. She reports that this pain has been worsening over the past few days. Apparently she was in the ED earlier in the week after a mechanical fall. She had by lateral x-ray and erythema was on the left at that time. She was started on Keflex in the emergency room for presumed cellulitis. Swelling and erythema has not improved since that time. She was also discharged on a higher dose of Lasix at this time. She is currently afebrile and hemodynamically stable she has no leukocytosis. On examination she has no jugular venous distention. Lungs are clear bilaterally. Abdomen is soft and nontender. She she has bilateral lower extremity edema, worse on the left. Extremities are tender to touch. She has bilateral lower extremity erythema worse on the left leg. Extending from the ankle to the mid leg. There is no open area or discharge. She has bilateral ankle swelling. She has normal range of motion of her ankle and toes. Problems: 1. Bilateral lower extremity swelling and erythema; this likely secondary to infection given bilateral nature and lack of improvement despite antibiotic therapy. 2. Rheumatoid arthritis. 3. Chronic diastolic heart failure Recommendations: -Would recommend discontinuing antibiotic therapy for now. Patient has been on antibiotics for 3 days prior to admission with no improvement of her bilateral lower extremity swelling and erythema. -The bony changes noted on the ankle x-ray are probably secondary to chronic rheumatoid arthritis. Would obtain indicated x-ray of the foot as recommended. -Would check an ESR to evaluate for flareup of rheumatoid arthritis -Her elevated uric and see level is suggestive of gout however patient has no history of gouty arthritis in the past. -We'll treat patient empirically for flareup of her rheumatoid arthritis with oral systemic steroid therapy. Start with prednisone 20 mg orally daily for the next 3 days then taper off. -Although her fall earlier in the week was mechanical would recommend physical therapy evaluation for safe discharge planning. -Continue her home dose of Lasix for now. Echo cardioversion grade 1 diastolic heart failure.
[2016-06-08 06:32] VITALS: BP 142/62
[2016-06-08 08:01] LABS: ABSOLUTE BASOPHIL COUNT 0.1 /CUMM (0.0-0.2); ABSOLUTE EOSINOPHIL COUNT 0.1 /CUMM (0.0-0.7); ABSOLUTE GRANULOCYTE CT 3.6 /CUMM (1.4-6.5); ABSOLUTE LYMPH COUNT 1.5 /CUMM (1.2-3.4); ABSOLUTE MONOCYTE COUNT 0.4 /CUMM (0.10-0.60); BASOPHIL % 1.3 % (0.0-2.0); EOSINOPHIL % 2.2 % (0-5); GRANULOCYTE % 62.7 % (42.2-75.2); HEMATOCRIT 34.5 % (37-47); MEAN CORPUSCULAR HGB 28.8 PG (27.0-31.0); MEAN CORPUSCULAR HGB CONC 34.2 G/DL (33.0-37.0); MEAN CORPUSCULAR VOLUME 84.4 FL (81.0-99.0); MEAN PLATELET VOLUME 8.6 FL (7.4-10.4); PLATELET COUNT 279 /CUMM (130-400); RED BLOOD CELL CT 4.09 /CUMM (4.20-5.40); WHITE BLOOD CELL COUNT 5.7 /CUMM (4.8-10.8)
--- NOTE | 2016-06-08 09:41 | ECHOCARDIOGRAM REPORT ---
COLTON GIRON Age: 86 : 1930 Gender: F Exam Date: 06/07/2016 19:19 Exam Location: ER Ht (in): 64 Wt (lb): 180 BSA: 1.95 BP: 158 / 72 Ordering Physician: DIANA HERZOG MD Referring Physician: Jose Fall MD Technologist: Debbi Sepulveda RDCS Room Number: [id number] Indications: HYPERTENSION Rhythm: Technical Quality: FINDINGS Left Ventricle Left ventricular cavity size normal. Left ventricular wall thickness at upper limits of normal. No obvious regional wall motion abnormalities. Left ventricular ejection fraction is estimated at > 55 %. Abnormal relaxation filling pattern of the left ventricle (stage 1 diastolic dysfunction). Right Ventricle Normal right ventricular size and function. Right Atrium Normal right atrial size. Left Atrium Normal left atrial size. Mitral Valve Mild mitral annular calcification. No mitral stenosis. Mild mitral regurgitation. Aortic Valve Trileaflet aortic valve. No aortic stenosis. Tricuspid Valve Structurally normal tricuspid valve. Mild tricuspid regurgitation. Right ventricular systolic pressure estimated at 35 mmHg. Pulmonic Valve Pulmonic valve not well visualized, grossly normal. Pericardium No pericardial effusion. Great Vessels Normal size aortic root. CONCLUSIONS Left ventricular cavity size normal. Left ventricular wall thickness at upper limits of normal. No obvious regional wall motion abnormalities. Left ventricular ejection fraction is estimated at > 55 %. Abnormal relaxation filling pattern of the left ventricle (stage 1 diastolic dysfunction). Normal right ventricular size and function. Right ventricular systolic pressure estimated at 35 mmHg. No pericardial effusion. Thompson Ang M.D. (Electronically Signed) Final Date: 08 June 2016 09:40 MEASUREMENTS (Male / Female) Normal Values 2D ECHO LV Diastolic Diameter PLAX 4.5 cm 4.2 - 5.9 / 3.9 - 5.3 cm LV Systolic Diameter PLAX 2.0 cm 2.1 - 4.0 cm LV Fractional Shortening PLAX 55.6 % 25 - 46 % LV Ejection Fraction 2D Teich 86.2 % IVS Diastolic Thickness 1.1 cm LVPW Diastolic Thickness 1.1 cm LV Relative Wall Thickness 0.5 RV Internal Dim ED PLAX 2.4 cm 1.9 - 3.8 cm LVOT Diameter 1.9 cm Aortic Root Diameter 3.6 cm LA Systolic Diameter LX 3.5 cm 3.0 - 4.0 / 2.7 - 3.8 cm LA Volume 39.0 cm 18 - 58 / 22 - 52 cm Ascending Aorta Diameter 3.3 cm DOPPLER AV Peak Velocity 156.0 cm/s AV Peak Gradient 9.7 mmHg AV Mean Velocity 107.0 cm/s AV Mean Gradient 5.0 mmHg AV Velocity Time Integral 29.8 cm LVOT Peak Velocity 147.0 cm/s LVOT Peak Gradient 8.6 mmHg LVOT Mean Velocity 92.2 cm/s LVOT Mean Gradient 4.0 mmHg LVOT Velocity Time Integral 27.0 cm LVOT Stroke Volume 76.6 cm AV Area Cont Eq vti 2.6 cm AV Area Cont Eq pk 2.7 cm MV Peak Velocity 117.0 cm/s MV Peak Gradient 5.5 mmHg MV Mean Velocity 67.3 cm/s MV Mean Gradient 2.0 mmHg Mitral E Point Velocity 68.5 cm/s Mitral A Point Velocity 111.0 cm/s Mitral E to A Ratio 0.6 MV PHT Velocity 73.0 cm/s MV Deceleration Ross 266.0 cm/s MV Pressure Half Time 82.3 ms MV Area PHT 2.7 cm MV Deceleration Time 158.0 ms TR Peak Velocity 271.0 cm/s TR Peak Gradient 29.4 mmHg Right Atrial Pressure 5.0 mmHg Pulmonary Artery Systolic Pressu 34.4 mmHg Right Ventricular Systolic Press 34.4 mmHg PV Peak Velocity 114.0 cm/s PV Peak Gradient 5.2 mmHg PV Mean Velocity 77.0 cm/s PV Mean Gradient 3.0 mmHg PV Velocity Time Integral 20.9 cm LV E' Lateral Velocity 14.2 cm/s Mitral E to LV E' Lateral Ratio 4.8 LV E' Septal Velocity 9.5 cm/s Mitral E to LV E' Septal Ratio 7.2
[2016-06-08 14:08] VITALS: BP 130/70
[2016-06-08 21:39] VITALS: BP 132/70
[2016-06-09] MEDS ORDERED: PREDNISONE10 M2 PO ×4 (03:14→19:49)
--- NOTE | 2016-06-09 03:24 | Patient Discharge Instructions ---
Discharge Instructions General Discharge Information You were seen/treated for: Rheumatoid arthritis flare up Special Instructions: Please follow up with Dr. Farrar within a week of discharge. Please follow up with Dr. Alfaro in his office within 1 week. Please schedule an appt at the following number: Please take all medications as directed. Diet Recommended Diet: Heart Healthy Acute Coronary Syndrome Inclusion Criteria At DC or during hospital stay patient has or had the following: ACS DIAGNOSIS No Discharge Core Measures Meds if any: Prescribed or Continued at Discharge Meds if any: NOT Prescribed or Continued at Discharge Congestive Heart Failure Inclusion Criteria At DC or during hospital stay patient has or had the following: CHF DIAGNOSIS No Discharge Core Measures Meds if any: Prescribed or Continued at Discharge Meds if any: NOT Prescribed or Continued at Discharge Cerebrovascular accident Inclusion Criteria At DC or during hospital stay patient has or had the following: CVA/TIA Diagnosis No Discharge Core Measures Meds if any: Prescribed or Continued at Discharge Meds if any: NOT Prescribed or Continued at Discharge Venous thromboembolism Inclusion Criteria VTE Diagnosis No VTE Type NONE VTE Confirmed by (Test) NONE Discharge Core Measures - Per Current guidelines, there needs to be overlap - treatment for the first 5 days of Warfarin therapy. - If discharged on Warfarin prior to 5 days of - overlap therapy, the patient will need to be - assessed for post discharge needs including - *Post discharge parental anticoagulation - *Warfarin and/or parental anticoagulation education - *Follow up date to check INR post discharge At least 5 days overlap therapy as Inpatient No Meds if any: Prescribed or Continued at Discharge Note: Overlap Therapy is Warfarin and Anticoagulant Meds if any: NOT Prescribed or Continued at Discharge
[2016-06-09 06:19] VITALS: BP 140/78
--- NOTE | 2016-06-09 07:58 | PN- Housestaff ---
TARA DE ANDA MD 06/09/16 0757: Subjective Follow-up For: Leg swelling Subjective: Patient seen and examiend at bedside this AM. She reports she is feeling better than yesterday and her lower extremity erythema has improved. She reports she is ready for discharge tomorrow. Review of Systems Constitutional: Denies: chills, fever, malaise. EENTM: Denies: blurred vision, visual changes, hearing changes. Cardiovascular: Denies: chest pain, palpitations. Respiratory: Denies: cough, short of breath. Gastrointestinal: Denies: abdominal pain, bloating, constipation, diarrhea. Genitourinary: Denies: dysuria. Musculoskeletal: Reports: see HPI. Skin: Reports: erythema. Neurological/Psychological: Denies: confusion, headache. Hematologic/Endocrine: Denies: bruising, bleeding. Objective Last 24 Hrs of Vital Signs/I&O Vital Signs Date Time Temp Pulse Resp B/P Pulse O2 O2 Flow FiO2 Ox Delivery Rate 06/09 0853 140/70 06/09 0853 140/78 06/09 0619 98.4 73 20 140/78 95 Room Air 06/08 2139 98.1 81 20 132/70 94 Room Air 06/08 1408 97.2 82 18 130/70 94 Room Air Intake & Output 06/09 1600 06/09 0800 06/09 0000 Intake Total 240 250 Output Total 600 225 Balance -360 25 Intake, IV 0 Intake, Oral 240 250 Number 1 1 Bowel Movements Output, Urine 600 225 Physical Exam General Appearance: Alert, Oriented X3, Cooperative, No Acute Distress Other Physical Findings: Skin Prominent swelling and extensive erythema from the ankle to shins bilaterally. Warm to touch. Tenderness to palpation. HEENT Atraumatic, PERRLA, EOMI, Mucous Membr. moist/pink Neck Supple, No JVD, +2 Carotid Pulse wo Bruit, No LAD Cardiovascular Regular Rate, Normal S1, Normal S2, No Murmurs, Gallops, Rubs Lungs Clear to Auscultation, Normal Air Movement Abdomen Normal Bowel Sounds, Soft, No Tenderness Neurological Normal Speech, Strength at 5/5 X4 Ext, Sensation Intact, Cranial Nerves 3-12 NL Extremities Edema and erythema in BLEs Vascular Normal Pulses, Pulses Symmetrical Current Medications: Current Medications Sig/Lisa Start time Last Medication Dose Route Stop Time Status Admin Acetaminophen 1,000 MG Q12P PRN 06/07 2200 AC IV Acetaminophen 650 MG Q6P PRN 06/07 1845 AC PO Amlodipine Besylate 5 MG DAILY 06/08 1000 AC 06/09 PO 0853 Aspirin Buffered 81 MG DAILY 06/08 1000 AC 06/09 PO 0855 Cefazolin Sodium 1,000 MG IQ8 06/08 0000 DC 06/08 IV 0914 Furosemide 20 MG DAILY 06/08 1000 AC 06/09 PO 0855 Heparin Sodium 5,000 UNIT Q8 06/07 2200 AC 06/09 (Porcine) SC 0617 Hydromorphone HCl 0.5 MG Q4P PRN 06/07 2200 AC IV Lisinopril 20 MG DAILY 06/08 1000 AC 06/09 PO 0853 Omeprazole 20 MG DAILY AC 06/09 0700 AC 06/09 PO 0615 Patient Medication 1 ED .STK-MED ONE 06/08 1416 DC Teaching ED 06/08 1417 Prednisone 20 MG DAILY 06/09 1000 DC PO Prednisone 20 MG BID 06/09 1000 AC 06/09 PO 0853 Prednisone 15 MG BID 06/08 2200 DC PO Prednisone 20 MG ONCE ONE 06/08 1630 DC 06/08 PO 06/08 1631 2200 Prednisone 20 MG DAILY 06/08 1100 DC 06/08 PO 1127 Last 24 Hrs of Lab/Tony Results Last 24 Hrs of Labs/Mics: Laboratory Tests 06/08/16 1340: ESR Westergren 42 H Orders Radiology Findings: EXAMINATION: XR ANKLE, LEFT CLINICAL INFORMATION: Pain. Suspected fracture. COMPARISON: Lower extremity ultrasound 06/04/2016. TECHNIQUE: 4 views of the left ankle. FINDINGS: There is diffuse stranding within the subcutaneous soft tissues of the left lower extremity with more focal swelling located over the lateral malleolus. There is no acute fracture or dislocation. No worrisome lytic changes. The ankle mortise is intact. Mild diffuse demineralization of bone of the midfoot and distal foot may indicate a manifestation of disuse. Possible mixed lytic and sclerotic changes within the base of the first metatarsal. There is no joint effusion. IMPRESSION: There is diffuse subcutaneous stranding within the distal left lower extremity that may represent a manifestation of edema, venous insufficiency, or cellulitis. There is more focal soft tissue swelling over the left lateral malleolus with no clear evidence of acute fracture or worrisome lytic changes within the underlying bone. Although only partially visualized within the [id number] this examination there appear to be mixed lytic and sclerotic changes within the base of the first metatarsal therefore a dedicated radiographic series of the left foot may be obtained for better anatomic characterization of this finding. Assessment/Plan Assessment: 86-year-old lady with a PMH significant for DJD and hypertension, last hospitalized in August 2015 for UTI, who presents with worsening edema and erythema in the bilateral lower extremities (worse on the left) since 4 days ago , most likely 2/2 gout vs. cellulitis. # Bilateral leg edema and erythema most likely 2/2 acute gout Patient presents with swelling and redness with tenderness and warmness in her distal legs, especially around the ankles, significantly worse on the LLE. Although cellulitis was initially supsected, her bilateral presentation is more concerning for a systemic disease in the light of her diffuse joint arthritis. It is possible that patient may have rheumatoid arthritis but acute gout is a more likely diagnosis given that her uric acid is slightly elevated at 6.4 this admission. Thus we will hold the patient off the antibiotics which she was started in ED and treat her for gout and RA for now with steroid. * 06/08/16 Discontinue Cefazolin 1g IV Q8 * Start prednisone 20mg PO BID (recommended dose per UpToDate is 30-50mg/day) * ESR high to 42 * Cont home med Lasix 20mg PO daily * Follow blood cx x 2 - NGTD * Check CBC daily, trend WBC (no leukocytosis, 06/09 WBC is 5.7) * Adequate pain control * Leg elevation * Left ankle X-ray to r/o fracture, osteomyelitis: shows subcutaneous stranding that may represent edema, venous insufficiency,or cellulitis. no acute fracture, no lytic changes. there appear to be mixed lytic and sclerotic changes within the base of the first metatarsal. * Left foot XR pending, f/u results * Mobilize patient # Recent fall * Check orthostatic hypotension * Follow echocardiogram - grossly normal * Check pro-BNP - slightly elevated at 502 # Hypokalemia - Resolved * Repleted potassium * As per attending, no need to check BEP tomorow # Hypertension * Lasix as above * Cont home meds Norvasc 5mg QD and lisinopril 20mg QD * Cont diuretic therapy on DC - Heart healthy diet - Moderate pain pathway - DVTppx with Lovenox - DNR/I Problem List: 1. Leg edema 2. Hypertension 3. Frequent falls Pain Ratin Pain Location: BLEs Pain Goal: Pain 4 or less Pain Plan: Mild pathway Tomorrow's Labs & Rationales: NONE. ZACHARIAH WHITEJOLYNNParker 06/09/16 0916: Attending MD Review Statement Attending Statement Attending MD Statement: examined this patient, discuss w/resident/PA/NONDESTRUCTIVE TESTER, agreed w/resident/PA/NONDESTRUCTIVE TESTER, reviewed EMR data (avail), discussed with nursing, discussed with case mgmt, amended to note Attending Assessment/Plan: Patient seen and examined. No issues overnight reported by nursing staff. Patient reports feeling better this morning. She reports mild decrease in her lower extremity swelling but improvement of the erythema. On examination she still has bilateral lower extremity swelling slightly reduced from yesterday. Erythema has improved markedly bilaterally. Review of labs show an elevated ESR suggesting a flareup of her rheumatoid arthritis. Recommendations: -Continue prednisone 20 mg orally twice daily today and tomorrow. -Anticipate discharging patient home tomorrow on prednisone tapering down to 20 mg daily for 2 days then 10 mg daily for 2 days and Stop. -Continue her diuretic regimen. -Mobilize patient as tolerated. She was doing well with a rolling walker this morning. -Continue her diuretic upon discharge.
--- NOTE | 2016-06-09 10:39 | RADIOLOGY REPORT ---
EXAMINATION: XR FOOT, LEFT CLINICAL INFORMATION: Tenderness and swelling COMPARISON: Left ankle films from 06/07/2016 TECHNIQUE: AP, lateral, and oblique views of the left foot. FINDINGS: There is diffuse osteopenia most pronounced in the periarticular regions. A hairline lucency at the lateral aspect of the base of the proximal phalanx of the left fifth toe raises the possibility of a hairline undisplaced fracture. This is not confirmed on all views. Hyperextension and degenerative change in the metatarsophalangeal joints and articular demineralization and some subchondral cyst formation is present but no focal bone lesion appreciated. There is no soft tissue calcification. There is plantar and posterior calcaneal spurring. IMPRESSION: Osteopenia and degenerative change in the left foot as described. A hairline lucency at the base of the proximal phalanx of the left fifth toe raises the possibility of a hairline undisplaced fracture of uncertain age. This is not confirmed on all views. No focal bone lesion identified. Plantar and posterior calcaneal spurs..
[2016-06-09 14:09] VITALS: BP 138/80
[2016-06-09 22:26] VITALS: BP 140/70
--- NOTE | 2016-06-10 06:39 | NUR ---
AT 0630 PT BP 154/80 HR 74. NICKY RIOS MD MADE AWARE, PER MD TO GIVE AMLODIPINE 5MG EARLY. MED GIVEN. WILL FOLLOW UP
[2016-06-10 07:02] VITALS: BP 152/84
--- NOTE | 2016-06-10 08:06 | PN- Housestaff ---
See Addendum Subjective Follow-up For: Leg swelling Subjective: Patient seen and examined at bedside this AM. She is very eager for discharge as her lower extremity swelling, erythema and pain have much improved. She is aware she must follow up with Dr. Alfaro this week for management of possible hairline fracture of her foot. Review of Systems Constitutional: Denies: chills, fever, malaise. EENTM: Denies: blurred vision, visual changes, hearing changes, nasal congestion, throat pain. Cardiovascular: Reports: peripheral edema. Denies: chest pain, palpitations. Respiratory: Denies: cough, short of breath. Gastrointestinal: Denies: abdominal pain, bloating, constipation, diarrhea. Genitourinary: Denies: dysuria, hematuria. Musculoskeletal: Reports: muscle pain (Bilateral LE, L>R, improving). Denies: back pain. Skin: Reports: erythema. Neurological/Psychological: Denies: confusion, headache, numbness. Hematologic/Endocrine: Denies: bruising, bleeding. Immunologic/Allergic: Denies: splenectomy. Objective Last 24 Hrs of Vital Signs/I&O Vital Signs Date Time Temp Pulse Resp B/P Pulse O2 O2 Flow FiO2 Ox Delivery Rate 06/10 0905 80 140/70 06/10 0702 97.9 74 16 152/84 95 Room Air 06/10 0631 74 18 154/80 06/09 2226 97.5 84 15 140/70 94 Room Air 06/09 1409 98.4 66 18 138/80 96 Room Air Intake & Output 06/10 1600 06/10 0800 06/10 0000 Intake Total 220 280 Output Total 400 Balance -180 280 Intake, IV 30 Intake, Oral 220 250 Number 0 Bowel Movements Output, Urine 400 Physical Exam General Appearance: Alert, Oriented X3, Cooperative, No Acute Distress Skin: Bilateral LE erythema and swelling, L>R, interval improvement since yesterday. HEENT: Atraumatic, Mucous Membr. moist/pink Neck: Supple, No thryomegaly Lymphatic: Cervical nl Cardiovascular: Regular Rate, Normal S1, Normal S2, No Murmurs Lungs: Normal Air Movement Abdomen: Normal Bowel Sounds, Soft, No Tenderness, No Hepatospenomegaly, No Masses Neurological: Normal Speech, Normal Tone Extremities: No Clubbing, No Cyanosis, Bilateral LE edema, L>R, improving from yesterday with noted improvement mobility of ankle joint Vascular: Pulses Symmetrical Current Medications: Current Medications Sig/Lisa Start time Last Medication Dose Route Stop Time Status Admin Acetaminophen 1,000 MG Q12P PRN 06/07 2199 AC IV Acetaminophen 650 MG Q6P PRN 06/07 1845 AC PO Amlodipine Besylate 5 MG DAILY 06/08 1000 AC 06/10 PO 0631 Aspirin Buffered 81 MG DAILY 06/08 1000 AC 06/10 PO 0905 Furosemide 20 MG DAILY 06/08 1000 AC 06/10 PO 0905 Heparin Sodium 5,000 UNIT Q8 06/07 2200 AC 06/10 (Porcine) SC 0540 Hydromorphone HCl 0.5 MG Q4P PRN 06/07 2199 AC IV Lisinopril 20 MG DAILY 06/08 1000 AC 06/10 PO 0905 Omeprazole 20 MG DAILY AC 06/09 0700 AC 06/10 PO 0540 Prednisone 20 MG BID 06/09 1000 AC 06/10 PO 0905 Orders Radiology Findings: EXAMINATION: XR FOOT, LEFT CLINICAL INFORMATION: Tenderness and swelling COMPARISON: Left ankle films from 06/07/2016 TECHNIQUE: AP, lateral, and oblique views of the left foot. FINDINGS: There is diffuse osteopenia most pronounced in the periarticular regions. A hairline lucency at the lateral aspect of the base of the proximal phalanx of the left fifth toe raises the possibility of a hairline undisplaced fracture. This is not confirmed on all views. Hyperextension and degenerative change in the metatarsophalangeal joints and articular demineralization and some subchondral cyst formation is present but no focal bone lesion appreciated. There is no soft tissue calcification. There is plantar and posterior calcaneal spurring. IMPRESSION: Osteopenia and degenerative change in the left foot as described. A hairline lucency at the base of the proximal phalanx of the left fifth toe raises the possibility of a hairline undisplaced fracture of uncertain age. This is not confirmed on all views. No focal bone lesion identified. Plantar and posterior calcaneal spurs.. Assessment/Plan Assessment: 86-year-old lady with a PMH significant for DJD and hypertension, last hospitalized in August 2015 for UTI, who presents with worsening edema and erythema in the bilateral lower extremities (worse on the left) since 4 days ago , most likely 2/2 gout vs. cellulitis. # Bilateral leg edema and erythema most likely 2/2 acute gout Patient presents with swelling and redness with tenderness and warmness in her distal legs, especially around the ankles, significantly worse on the LLE. Although cellulitis was initially supsected, her bilateral presentation is more concerning for a systemic disease in the light of her diffuse joint arthritis. It is possible that patient may have rheumatoid arthritis but acute gout is a more likely diagnosis given that her uric acid is slightly elevated at 6.4 this admission. Thus we will hold the patient off the antibiotics which she was started in ED and treat her for gout and RA for now with steroid. * 06/08/16 Discontinue Cefazolin 1g IV Q8 * Prednisone taper continued today, will do 20 mg PO daily for 2 days then on will begin 10 mg PO prednisone for 2 days them stop * ESR high to 42 * Cont home med Lasix 20mg PO daily * Follow blood cx x 2 - NGTD * Check CBC daily, trend WBC (no leukocytosis, 06/09 WBC is 5.7) * Adequate pain control * Leg elevation * Left ankle X-ray to r/o fracture, osteomyelitis: shows subcutaneous stranding that may represent edema, venous insufficiency,or cellulitis. no acute fracture, no lytic changes. there appear to be mixed lytic and sclerotic changes within the base of the first metatarsal. * Left foot XR done yesterday shows possible hairline fracture of proximal phalanx Left fifth toe: patient was discharged with follow up to Dr. Alfaro' office for management of this issue * Mobilize patient # Recent fall * Orthostatic hypotension negative * Follow echocardiogram - grossly normal * Check pro-BNP - slightly elevated at 502 # Hypokalemia - Resolved * Repleted potassium * As per attending, no need to check BEP tomorow # Hypertension * Lasix as above * Cont home meds Norvasc 5mg QD and lisinopril 20mg QD * Cont diuretic therapy on DC - Heart healthy diet - Moderate pain pathway - DVTppx with Lovenox - DNR/I Problem List: 1. Leg edema 2. Cellulitis of left leg 3. Cellulitis of leg, right 4. Hypertension Pain Ratin Pain Location: Bilateral LEs Pain Goal: Pain 4 or less Pain Plan: Mild pathways Tomorrow's Labs & Rationales: Discharge today.
[2016-06-10 08:30] VITALS: BP 140/70
[2016-06-10 09:05] VITALS: BP 140/70
[2016-06-10] MEDS ORDERED: PREDNISONE10 M2 PO (10:09)
--- NOTE | 2016-06-11 16:41 | Discharge Summary ---
Visit Information Visit Dates Admission Date: 06/07/16 Discharge Date: 06/10/16 Hospital Course Course Attending Physician: STORMY MORLEY MD Primary Care Physician: NICOLE SHARPE MD Hospital Course: 86-year-old lady with a PMH significant for DJD and hypertension, last hospitalized in August 2015 for UTI, who presents with worsening edema and erythema in the bilateral lower extremities (worse on the left) since 4 days ago , most likely 2/2 gout vs. cellulitis. The patient was admitted to general medicine service for the management of following problems: # Bilateral leg edema and erythema most likely 2/2 acute gout Patient presented with swelling and redness with tenderness and warmness in her distal legs, especially around the ankles, significantly worse on the LLE. Although cellulitis was initially suspected, her bilateral presentation was more concerning for a systemic disease in the light of her diffuse joint arthritis. We contributed her symptoms to a flare up of rheumatoid arthritis and possible acute gout as her uric acid was slightly elevated at 6.4 this admission. ESR was also high at 42. Thus we held the patient off the antibiotics (IV Cefazolin) which she was started in ED. We treated her with predisone 20mg BID and discharged her on steroid taper. Patient was kept on home med Lasix 20mg PO daily. Blood cultures were negative. Patient remained hemodynamically stable and afebrile with no signs of SIRS during her hospital stay. - Left ankle X-ray: subcutaneous stranding that may represent edema, venous insufficiency,or cellulitis. no acute fracture, no lytic changes. there appear to be mixed lytic and sclerotic changes within the base of the first metatarsal. - Left foot XR: possible hairline fracture of proximal phalanx Left fifth toe: patient was discharged with follow up to Dr. Mott' office for management of this issue # Recent fall Most likely mechanical as per the patient's account. Orthostatic hypotension was negative. Echocardiogram was grossly normal. Pro-BNP was slightly elevated at 502. # Hypokalemia - Resolved Her K level upon admission was low at 3.3 We repleted potassium and it improved appropriately. # History of hypertension Ppatient was kept on home meds Norvasc 5mg QD, lisinopril 20mg QD and Lasix 20mg PO daily. Allergies: Coded Allergies: epinephrine (UNKNOWN PER PT 01/23/17) Disposition Summary Disposition Principal Diagnosis: Rheumatoid arthritis flare up Additional Diagnosis: Hypokalemia Discharge Disposition: hospice - home Discharge Instructions General Discharge Information Code Status: Do Not Resucitate/Intubat Patient's Diet: Heart healthy diet Patient's Activity: As tolerated Follow-Up Instructions/Appts: Please follow up with Dr. Sharpe within a week of discharge. Please follow up with Dr. Mott in his office within 1 week. Please schedule an appt at the following number: Please take all medications as directed. Medications at Discharge Discharge Medications: Stop taking the following medications: Furosemide (Lasix) 40 MG TABLET ORAL DAILY Qty = 4 Continue taking these medications: Enalapril Maleate (Enalapril Maleate) 20 MG TABLET 1 Tablet ORAL DAILY Qty = 90 Comments: Last Taken: NOT GIVEN Time: Furosemide (Lasix) 20 MG TABLET 1 Tablet ORAL DAILY Qty = 30 Comments: Last Taken: 06/10/16 Time: 9AM Amlodipine Besylate (Amlodipine Besylate) 5 MG TABLET 1 Tablet ORAL DAILY Comments: Last Taken: 06/10/16 Time: 5 AM Aspirin (Ecotrin*) 81 MG TABLET. 1 Tablet ORAL DAILY Comments: Last Taken: 06/10/16 Time: 9AM Cholecalciferol (Vitamin D3) (Vitamin D3) 2,000 UNIT TABLET 1 Tablet ORAL DAILY Comments: NOT GIVEN IN HOSPITAL Start taking the following new medications: Prednisone (Prednisone) 10 MG TABLET 0 ORAL See Instructions Qty = 4 No Refills Instructions: 06/11 take 2 tabs daily 06/12 take 1 tab daily 06/13 take 1 tab daily then STOP. Copies To: MARIUSZ MOTT DPM, MD,NICOLE Reyna MD Review Statement Documenting Attending: NUBIA SONI M.D Other Findings: I have reviewed the discharge summary
== END 2016-06-10 10:33 | disposition home health service (06) | DRG 547 ==
LOC: ERH 14:20 → 2NA 17:27 → ERHI 17:27 → ENPENDDIS 17:27 → 2NA 20:20 → ERHI 20:23 → 2NA 20:34
PROVIDERS: Internal Medicine; Physician Assistant; ADMIT Hospitalist
DX: M06.9 Rheumatoid arthritis, unspecified (principal); I10 Essential (primary) hypertension; M10.9 Gout, unspecified; R60.0 Localized edema; E87.6 Hypokalemia; M19.90 Unspecified osteoarthritis, unspecified site
CPT/HCPCS: 2NASP; 36415; 73610-LT; 73630-LT; 82436; 87040; 93005; 93010; 93306; 93970; 97110-GO; 97116-GO; 97161-GP; 97530-GO; J0690; J0696; J1644; J1940; J7512

== ENCOUNTER 2016-09-23 14:22 | Inpatient (IN) | payer OTHER, MEDICARE ==
[~2016-09-23] VITALS: Ht 170.2 cm; Wt 81.6 kg
[~2016-09-23 14:22] MED LIST changes: +PREDNISONE10 M2 PO; +VITAMIN D32000 UNI1 PO
--- NOTE | 2016-09-23 14:29 | NUR ---
PT TO ED C/O INCREASING WEAKNESS. PT STATES LAST TIME THIS HAPPENED SHE HAD A UTI. PT ARRIVES COVERED IN DRIED BM. PT CLEANED, CHANGED INTO GOWN. DENIES ANY PAIN, C/P, DIFF BREATHING. LAWSON OREILLY IN FOR EVAL.
--- NOTE | 2016-09-23 14:43 | ED AMS/SEIZURE/WEAK/DIZZY ---
History of Present Illness General Chief Complaint: General Adult Stated Complaint: BIBA, WEAKNESS Source: patient, family, old records, EMS Exam Limitations: no limitations Vital Signs & Intake/Output Vital Signs & Intake/Output Vital Signs Date Time Temp Pulse Resp B/P B/P Pulse O2 O2 Flow FiO2 Mean Ox Delivery Rate 09/23 1432 98.0 82 20 145/74 97 Room Air Allergies Coded Allergies: epinephrine (UNKNOWN PER PT 06/04/16) Reconcile Medications Amlodipine Besylate 5 MG TABLET 1 TAB PO DAILY BP (Reported) Aspirin (Ecotrin*) 81 MG TABLET.DR 1 TAB PO DAILY HEART/BLOOD (Reported) Cholecalciferol (Vitamin D3) (Vitamin D3) 2,000 UNIT TABLET 1 TAB PO DAILY SUPPLEMENT (Reported) Enalapril Maleate 20 MG TABLET 1 TAB PO DAILY HEART (Reported) Furosemide (Lasix) 20 MG TABLET 1 TAB PO DAILY Blood pressure Triage Note: PT TO ED C/O INCREASING WEAKNESS. PT STATES LAST TIME THIS HAPPENED SHE HAD A UTI. PT ARRIVES COVERED IN DRIED BM. PT CLEANED, CHANGED INTO GOWN. DENIES ANY PAIN, C/P, DIFF BREATHING. LAWSON OREILLY IN FOR EVAL. Triage Nurses Notes Reviewed? yes Onset: Gradual Duration: week(s): (1), constant Timing: recent history Injury Environment: home Severity: mild, moderate Severity Numbers: 6 No Modifying Factors: none Associated Symptoms: DENIES HPI: 86-year-old 86-year-old female with history of hypertension presents with family brought in by [facility] complaining of one-week history of progressively worsening weakness generalized malaise. The report she has a history of similar episodes in the past which time she was diagnosed with a urinary tract infection. The patient denies urgency frequency hematuria dysuria. She had one episode of diarrhea prior to arrival and she denies any abdominal pain nausea or vomiting no black or bloody stools no chest pain shortness of breath. There's been no change in her mental status patient's family states that she lives at home with a live next door and that she is normally able to care for herself which she has continued to do despite her weakness. The patient normally ambulatory to the walker she had a fall earlier this week EMS came out to evaluate the patient declined care she has bruising to the left elbow and left hip however states she's been ambulatory since without complaints there is been no recent new falls no dizziness or lightheadedness. (TRACEE WARE) Past History Travel History Traveled to [place] past 21 day No Medical History Any Pertinent Medical History? see below for history Neurological: NONE EENT: NONE Cardiovascular: hypertension Respiratory: NONE Gastrointestinal: NONE Hepatic: NONE Renal: NONE Musculoskeletal: osteoarthritis, rheumatoid arthritis Psychiatric: anxiety Endocrine: NONE Blood Disorders: NONE Cancer(s): NONE CHART PICKER/Reproductive: HYSTERECTOMY History of MRSA: No History of VRE: No History of CDIFF: No Surgical History Surgical History: hysterectomy, BILAT KNEE REPLACEMENT, L SHOULDER REPAIR Psychosocial History Who do you live with Patient/Self Services at Home Nursing What is your primary language Kyrgyz Tobacco Use: Quit >30 days ago ETOH Use: denies use Illicit Drug Use: denies illicit drug use Family History Family History, If Any: SISTER FH: diabetes mellitus Hx Contributory? No (TRACEE WARE) Review of Systems Review of Systems Constitutional: Reports: see HPI. All Other Systems: Reviewed and Negative Comments Review of systems: See HPI, All other systems negative. Constitutional, no chills no fever, malaise no weight loss HEENT: No visual changes no sore throat no congestion, no ear pain Cardiovascular: No chest pain , no palpitation , Skin: no rashes, no change in skin Respiratory: No dyspnea no cough no sputum no hemoptysis GI: No nausea no vomiting, no diarrhea : No dysuria No hematuria, no frequency, no discharge Muscle skeletal: No joint pain, no joint swelling, no back pain, no neck pain, Neurologic: no headache Psych: No stress Heme/endocrine: No bruising no bleeding Immunology: No lymphadenopathy (TRACEE WARE) Physical Exam Physical Exam General Appearance: well developed/nourished, no apparent distress, alert, awake Comments: Well-developed well-nourished person in no acute distress HEENT: Normal EENT exam; PERRL, EOMI. HEAD is atraumatic. moist mucous membranes. Neck: Supple, no lymphadenopathy, normal range of motion Back: Nontender, no CVA tenderness. Full range of motion Cardiovascular: Regular rate and rhythms no murmurs rubs Respiratory: Chest nontender.There were no bony deformities, no asymmetry. No respiratory distress. Patient speaking in full complete sentences. Breath sounds clear to auscultation bilaterally: NO W/R/R Abdomen: Soft, nontender nondistended, no appreciable organomegaly. Normal bowel sounds. No rebound/guarding, No appreciable enlargement of the abdominal aorta, No ascites. Extremity: No edema, full range of motion of extremities, normal and equal pulses bilaterally, 5 out of 5 strength noted to bilateral upper and lower extremities Neuro: Alert oriented x3, motor sensory normal, cranial nerves II through XII grossly intact. There were no obvious focal neurologic abnormalities. Skin: No appreciable rash on exposed skin, skin is warm and dry. Healing ecchymosis bruises noted to the left Psych: Mood and affect is normal, memory and judgment is normal. Core Measures ACS in differential dx? Yes CVA/TIA Diagnosis: No Severe Sepsis Present: No Septic Shock Present: No (DENILSON PATHAK,TRACEE) Progress Differential Diagnosis: arrythmia, anemia, CVA/stroke, dehydration, electrolyte imbalance, GI bleed, hypoglycemia, pneumonia, presyncope, sepsis, UTI/pyelo, vertebrobasilar insuff Plan of Care: Orders Procedure Date/time Status Regular Diet 09/24 B Active Patient Data 09/23 1727 Active Admit to inpatient 09/23 1657 Active Straight Cath 09/23 1542 Active Saline Lock 09/23 1441 Active CULTURE,URINE 09/23 1441 Active BLOOD CULTURE 09/23 1441 Active URINALYSIS 09/23 1441 Complete TROPONIN LEVEL 09/23 1441 Complete LACTIC ACID 09/23 1441 Complete COMPREHENSIVE METABOLIC PANEL 09/23 1441 Complete CBC WITHOUT DIFFERENTIAL 09/23 1441 Complete EKG 09/23 1441 Active Laboratory Tests 09/23/16 1618: Urine Color YEL, Urine Clarity CLEAR, Urine pH 6.5, Ur Specific [place] 1.020, Urine Protein TRACE H, Urine Ketones NEG, Urine Nitrite NEG, Urine Bilirubin NEG, Urine Urobilinogen 2.0 H, Ur Leukocyte Esterase NEG, Ur Microscopic SEDIMENT EXAMINED, Urine RBC RARE, Urine WBC 1-3 H, Ur Epithelial Cells RARE, Urine Bacteria RARE H, Hyaline Casts RARE H, Urine Hemoglobin NEG, Urine Glucose NEG 09/23/16 1445: Anion Gap 11, Estimated GFR > 60, BUN/Creatinine Ratio 20.0, Glucose 90, Lactic Acid 1.7, Calcium 9.7, Total Bilirubin 0.7, AST 31, ALT 19, Alkaline Phosphatase 65, Troponin I 0.01, Total Protein 7.2, Albumin 4.2, Globulin 3.0, Albumin/ Globulin Ratio 1.4, CBC w Diff NO MAN DIFF REQ, RBC 4.63, MCV 82.2, MCH 27.1, RDW 14.9 H, MPV 8.4, Gran % 70.6, Lymphocytes % 20.9, Monocytes % 4.7, Eosinophils % 1.4, Basophils % 2.4 H, Absolute Granulocytes 4.4, Absolute Lymphocytes 1.3, Absolute Monocytes 0.3, Absolute Eosinophils 0.1, Absolute Basophils 0.1, PUBS MCHC 33.0 Microbiology 09/23 1618 URINE ROUT: Urine Culture - RECD 09/23 1534 BLOOD: Blood Culture - RECD 09/23 1445 BLOOD: Blood Culture - RECD labs ordered, old records reviewed. pt alert and oriented x 3. d/w the pt plan of care and allher lab results, i spoke with the pts daughter in law over the phone, given pt is not ambulating at baseline, premature discharge would be medically harmful which they are in agreemenet with. case dw dr anne-marie vazquez with plan d/w dr samuel [facility] (DENILSON PATHAK,TRACEE) Diagnostic Imaging: Viewed by Me: Radiology Read. Discussed w/RAD: Radiology Read. Radiology Impression: PATIENT: COLTON GIRON PRESENT AGE: 86 PATIENT ACCOUNT NO: [id number] : 32 LOCATION: [facility] ORDERING PHYSICIAN: TRACEE PATHAK SERVICE DATE: 09/23/16 EXAM TYPE: RAD - XRY- PORTABLE CHEST XRAY EXAMINATION: XR PORTABLE CHEST CLINICAL INFORMATION: Pneumonia. Weakness. COMPARISON: Chest radiography 06/07/2016. TECHNIQUE: Portable frontal view of the chest was obtained. FINDINGS: No new significant abnormality is noted involving the heart, lungs, mediastinum, bony thorax or soft tissues. Aortic atherosclerotic calcification. IMPRESSION: No acute pulmonary pathology demonstrated. DICTATED BY: SARITA FLORES MD DATE/TIME DICTATED:09/23/161500 CHILD CAREGIVER PRIVATE HOME:[facility] DATE/TIME TRANSCRIBED:1500 CONFIDENTIAL, DO NOT COPY WITHOUT APPROPRIATE AUTHORIZATION. < Electronically signed in Other Vendor System> SIGNED BY: SARITA FLORES MD 09/23/16 3046 Initial ED EKG: normal intervals, normal p-waves, normal QRS complex, normal sinus rhythm, RBBB Prior EKG: unchanged Rhythm Strip: normal sinus rhythm (TRACEE WARE) Departure Departure Time of Disposition: 1653 Disposition: STILL A PATIENT Condition: Stable Clinical Impression Primary Impression: Weakness Secondary Impressions: Gait instability Referrals: DELL WHITE,NICOLE Squires (PCP/Family) Departure Forms: Customer Survey General Discharge Information Admission Note Spoke With: ALEXANDRU SAMUEL MD Documentation of Exam: Documentation of any treatments & extenuating circumstances including Concerns Regarding Discharge (functional status, medication knowledge or non-compliance, living conditions, etc.) that warrant an admission rather than observation: PT CONSULT, TREND LABS AND CULTURES, PREMATURE DISCHARGE WOULD BE MEDICALLY HARMFUL , PT IS NOT AMBULATING AT BASELINE, SHE FELL EARLIER THIS WEEK, FALL RISK. UNABLE TO PERFORM ADLS (TRACEE WARE) PA/CENTRAL OFFICE TECHNICIAN Co-Sign Statement Statement: ED Attending supervision documentation- [X] I saw and evaluated the patient. I have also reviewed all the pertinent lab results and diagnostic results. I agree with the findings and the plan of care as documented in the PA's/CENTRAL OFFICE TECHNICIAN's documentation. [X] I have reviewed the ED Record and agree with the PA's/CENTRAL OFFICE TECHNICIAN's documentation. [] Additions or exceptions (if any) to the PAs/CENTRAL OFFICE TECHNICIAN's note and plan are summarized below: [] (SANYA WHITE,KEEGAN Squires)
--- NOTE | 2016-09-23 14:52 | NUR ---
BLOOD DRAWN AND SENT-SST,LAV,BLUE,QUIÑONEZ,1ST SET OF BC. RAD AT BEDSIDE FOR CHEST XRAY.
--- NOTE | 2016-09-23 15:08 | RADIOLOGY REPORT ---
EXAMINATION: XR PORTABLE CHEST CLINICAL INFORMATION: Pneumonia. Weakness. COMPARISON: Chest radiography 06/07/2016. TECHNIQUE: Portable frontal view of the chest was obtained. FINDINGS: No new significant abnormality is noted involving the heart, lungs, mediastinum, bony thorax or soft tissues. Aortic atherosclerotic calcification. IMPRESSION: No acute pulmonary pathology demonstrated.
[2016-09-23 15:16] LABS: ABSOLUTE BASOPHIL COUNT 0.1 /CUMM (0.0-0.2); ABSOLUTE EOSINOPHIL COUNT 0.1 /CUMM (0.0-0.7); ABSOLUTE GRANULOCYTE CT 4.4 /CUMM (1.4-6.5); ABSOLUTE LYMPH COUNT 1.3 /CUMM (1.2-3.4); ABSOLUTE MONOCYTE COUNT 0.3 /CUMM (0.10-0.60); BASOPHIL % 2.4 % (0.0-2.0); EOSINOPHIL % 1.4 % (0-5); GRANULOCYTE % 70.6 % (42.2-75.2); HEMATOCRIT 38.1 % (37-47); MEAN CORPUSCULAR HGB 27.1 PG (27.0-31.0); MEAN CORPUSCULAR VOLUME 82.2 FL (81.0-99.0); MEAN PLATELET VOLUME 8.4 FL (7.4-10.4); PLATELET COUNT 296 /CUMM (130-400); RBC DISTRIBUTION WIDTH 14.9 % (11.5-14.5); RED BLOOD CELL CT 4.63 /CUMM (4.20-5.40); WHITE BLOOD CELL COUNT 6.2 /CUMM (4.8-10.8)
--- NOTE | 2016-09-23 15:34 | NUR ---
SECOND SET OF CULTURES OBTAINED AND SENT TO LAB
--- NOTE | 2016-09-23 16:21 | NUR ---
STRAIGHT CATH PREFORMED, 200MLS OF CLEAR YELLOW URINE OUT. URINE TRIO OBTAINED AND SENT TO LAB
--- NOTE | 2016-09-23 16:50 | NUR ---
ATTEMPTED TO AMBULATE PT. ATTEMPT UNSUCCESSFUL, PT HAD UNSTEADY GAIT. PT UNABLE TO AMBULATE MORE THAN A COUPLE STEPS. PT USUALLY ABLE TO WALK WITHOUT ASSISTANCE AT HOME, LAWSON OREILLY MADE AWARE.
--- NOTE | 2016-09-23 16:51 | NUR ---
PT HELPED BACK INTO STRETCHER, SIDE RAILS IN UPRIGHT POSITION, CALL IRBY WITHIN REACH
--- NOTE | 2016-09-23 17:10 | History & Physical ---
ADI WHITE,CASEY 09/23/16 1710: General Information and HPI MD Statement: I have seen and personally examined COLTON GIRON and documented this H&P. The patient is a 86 year old F who presented with frequent falls, difficulty ambulation, and leg pain. Source of Information: patient Exam Limitations: poor historian, conflicting stories History of Present Illness: 86-year-old female with past medical history of hypertension, osteoarthritis, remote history of rheumatoid arthritis, recently admitted in the [facility] for difficulty ambulation, was brought in by ambulance and her family members after she was having difficulty walking around and even taking steps. According to the patient, she was in her usual state of health until a couple of weeks ago, when she started having frequent falls, which she attributed to her legs giving away/mechanical. She had her head hit with her once according to her, but did not sustain major injuries, was checked by her family and emergency. This morning, after having breakfast, she noticed that she was having difficulty taking steps. She normally has to climb up stairs to reach her room, which she was not able to at all, and had worsening pain and weakness of her bilateral legs. She did notice some leg swelling, but this is not new to her. She takes "water pill" sometimes for her leg swelling. She denies any chest pain, shortness of breath, palpitation, headache, weakness of any other parts of the body, loss of consciousness, bowel or bladder changes, confusion before during or after the episode. She also denies any fever, chills, recent travels, any sick contacts. Her primary care physician/library circulation clerk is Dr. Sharpe, and she lives alone, has a family members living around the neighborhood who come visit her every day, and her medication is managed by her family members. Her son Yohannes Giron , who takes care of her medication, was not available when contacted. Pharmacy was also closed when recalled. This medication list needs to be updated as soon as possible in the morning. Allergies/Medications Allergies: Coded Allergies: epinephrine (UNKNOWN PER PT 06/04/16) Home Med list Amlodipine Besylate 5 MG TABLET 1 TAB PO DAILY BP (Reported) Aspirin (Ecotrin*) 81 MG TABLET. 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 Home Who Do You Live With? self Services at Home: Nursing Primary Language: Argentine Smoking Status: Former Smoker ETOH Use: denies use Illicit Drug Use: denies illicit drug use Functional Ability ADLs Independent: dressing, eating, toileting, bathing. Ambulation: walker IADLs Independent: housework, food prep, telephone. Review of Systems Review of Systems Constitutional: Reports: no symptoms. EENTM: Reports: no symptoms. Cardiovascular: Reports: no symptoms. Respiratory: Reports: no symptoms. GI: Reports: no symptoms. Genitourinary: Reports: no symptoms. Musculoskeletal: Reports: see HPI (b/l leg pain), back pain. Skin: Reports: no symptoms. Neurological/Psychological: Reports: no symptoms. Hematologic/Endocrine: Reports: no symptoms. All Other Systems: Reviewed and Negative Post Menopausal: Yes Exam & Diagnostic Data Last 24 Hrs of Vital Signs/I&O Vital Signs Date Time Temp Pulse Resp B/P B/P Pulse O2 O2 Flow FiO2 Mean Ox Delivery Rate 09/23 1850 Room Air 09/23 1850 98.7 70 20 175/80 95 Room Air 09/23 1759 98.2 80 18 170/80 98 Room Air 09/23 1432 98.0 82 20 145/74 97 Room Air Intake & Output 09/23 1600 09/23 0800 09/23 0000 Intake Total Output Total Balance Patient 81.647 kg Weight Weight Reported by Patient Measurement Method Physical Exam General Appearance Alert, Cooperative, No Acute Distress, partially oriented. oriented to palce and person, could tell her date of , but not this year Last 24 Hrs of Labs/Tony: Laboratory Tests 09/23/16 1741: Lactic Acid Cancelled 09/23/16 1618: Urine Color YEL, Urine Clarity CLEAR, Urine pH 6.5, Ur Specific Marcellus 1.020, Urine Protein TRACE H, Urine Ketones NEG, Urine Nitrite NEG, Urine Bilirubin NEG, Urine Urobilinogen 2.0 H, Ur Leukocyte Esterase NEG, Ur Microscopic SEDIMENT EXAMINED, Urine RBC RARE, Urine WBC 1-3 H, Ur Epithelial Cells RARE, Urine Bacteria RARE H, Hyaline Casts RARE H, Urine Hemoglobin NEG, Urine Glucose NEG 09/23/16 1445: Anion Gap 11, Estimated GFR > 60, BUN/Creatinine Ratio 20.0, Glucose 90, Lactic Acid 1.7, Calcium 9.7, Total Bilirubin 0.7, AST 31, ALT 19, Alkaline Phosphatase 65, Troponin I 0.01, Total Protein 7.2, Albumin 4.2, Globulin 3.0, Albumin/ Globulin Ratio 1.4, CBC w Diff NO MAN DIFF REQ, RBC 4.63, MCV 82.2, MCH 27.1, RDW 14.9 H, MPV 8.4, Gran % 70.6, Lymphocytes % 20.9, Monocytes % 4.7, Eosinophils % 1.4, Basophils % 2.4 H, Absolute Granulocytes 4.4, Absolute Lymphocytes 1.3, Absolute Monocytes 0.3, Absolute Eosinophils 0.1, Absolute Basophils 0.1, PUBS MCHC 33.0 Microbiology 09/23 1618 URINE ROUT: Urine Culture - RECD 09/23 1534 BLOOD: Blood Culture - RECD 09/23 1445 BLOOD: Blood Culture - RECD Diagnostic Data EKG Results Normal sinus rhythm with heart rate 78, QTC is prolonged at 547, QRS 156, OK 212 , right bundle branch block pattern which is not new. Previous EKG also had prolonged QTC. CXR Results IMPRESSION: No acute pulmonary pathology demonstrated. DICTATED BY: SARITA FLORES MD DATE/TIME DICTATED:09/23/161500 ACIDIZER HELPER:WILLIS DATE/TIME TRANSCRIBED:09/23/161500 Other Results Physical examnination: General: well nourished overweight patient, not in distress, slightly confused, partially oriented Head: Normocephalic, atraumatic Eyes: Pupils normal in size, regular, reacting to light and accommodation, EOM normal Ears: B/l normal on inspection Nose: Normal on inspection Throat/mouth: Dry mucosa Neck: Supple, full range of motion, no thyromegaly Heart: Regular rate, regular rhythm Lung: Normal breath sound bilaterally , some basal crepts heard occassionally, not in distress Abd: Soft, non-tender, no distention appreciated Back: Normal range of motion Extremities: b/l knee swollen but not tender, no redness, 2+ pedal edema b/l AND TENDER R>L Neurologic: Alert, oriented x3, Cranial exam grossly intact, Speech is clear and coherent Skin: Warm and dry Psychiatric: Calm, cooperative, coherant Assessment/Plan Assessment: 86-year-old female with past medical history of hypertension, osteoarthritis, remote history of rheumatoid arthritis, recently admitted in the [facility] for difficulty ambulation, was brought in by ambulance and her family members after she was having difficulty walking around and even taking steps. In the emergency department, patient was found to be dehydrated, received IV fluids, labs were not significantly deviated from normal limits, chest x-ray was also negative for acute cardiopulmonary changes, urine analysis was hazy with rare bacteria. EKG had prolonged QT interval and right bundle branch block which was old. She is currently being managed in the general medical floor for the following issues: #Frequent mechanical falls -Possibly secondary to severe osteoarthritis -Physical therapy evaluation in the morning -Might need short-term rehabilitation or home physical therapy, depending on how she performs her the physical therapy evaluation in the morning -Of note, she lives alone in her house, although her family members who live in the neighborhood and visit her daily #Severe osteoarthritis -Pain management, and prednisone started at 10 mg oral daily -Rheumatology consult in the morning, with Braulio Sharpe MD, was also her primary care physician and library circulation clerk #Bilateral leg pain and swelling, to rule out cellulitis -Patient is currently afebrile with normal WBC count, but both her legs are swollen, tender and warm, although not pink/red. No open wound noted, but early cellulitis can be a possibility. -We'll watch patient off antibiotic, and serial clinical examination of the legs. -We'll plan to investigate, and/or add antibiotic if suspicion of cellulitis increases #Hypertension -Patient has a history of hypertension, but has several medications in her current med list which she was unable to confirm during the interview. Her son Yohannes Giron was reported to be taking care of her medications, was not available at phone so will be contacted later again. He was left a message to call back [facility] general medical floor. Similarly, pharmacy was closed thus CMR/medicine list needs to be confirmed first thing in the morning Diet: Regular diet DVT prophylaxis with subcutaneous heparin CODE STATUS: DNR/DNI As Ranked By This Provider Problem List: 1. Weakness Core Measures/Miscellaneous Acute Coronary Syndrome ACS Diagnosis: No Cerebrovascular Accident CVA/TIA Diagnosis: No Congestive Heart Failure CHF Diagnosis: No Venous Thromboembolism VTE Risk Factors: Age > 40 No [facility] VTE prophylaxis d/t: No contraindications No VTE Pharm Prophylaxis d/t: No contraindications VTE Diagnosis: No VTE Type: NONE VTE Confirmed by (Test): NONE Severe Sepsis Severe Sepsis Present: No Septic Shock Septic Shock Present: No Miscellaneous Documentation Attending Case Discussed With: ALEXANDRU SAMUEL MD Primary Care Physician: BRAULIO SHARPE MD Patient sees these Specialists Medicaid Collection Specialist Level of Patient Care: General Medicine INÉS POND MD 09/23/16 1913: Resident Review Statement Resident Statement: examined this patient, discussed with internal audit senior manager, agreed with internal audit senior manager, reviewed EMR data (avail), reviewed images, amended to note Other Findings: This is 86 year old female with past medical history of hypertension, osteoarthritis with remote history of rheumatoid arthritis who was recently admitted to [facility] after having fall and difficulty with ambulation and was discharged on prednisone taper for progressively worsening osteoarthritis presented to ER with chief complaint of inability to ambulate and recent fall. Patient was in her usual health up until a week ago when she started noticing progressively worsening bilateral lower extremity weakness secondary to worsening bilateral knee pain and decreased range of motion. Patient reports she had a mechanical fall probably 3 days prior to admission while getting out of shower she tripped and fell, with head strike but no loss of consciousness and at that time she did not attain any medical help. Today she went with her son for breakfast and after returning from restaurant while going upstairs to her bedroom she could barely get up to 2 stairs with significant difficulty and at that point she couldnt move at all and her son had to carry her from stair to the floor and called EMS and brought to ER for further evaluation. Labs were significant for T 98, HR 82, RR 20, BP 145/74, O2 sat 97% on room air. On physical exam patient is alert oriented 2, however not oriented to time, HEENT PERRLA EOMI, neck supple without JVD, heart S1-S2 normal without murmur lungs clear on auscultation, abdomen soft nontender nondistended with preserved bowel sounds, no focal neuro deficit, no peripheral edema but noted warm of bilateral lower extremity right more than left with pain on palpation on the right lower extremity, decreased ROM in bilateral lower extremity right more than left. Labs were significant for WBC 6.2, H&H 12.6/38.1, BUN 16, creatinine 0.8, lactic acid 1.7, negative troponin, normal LFT. Chest x-ray noted negative UA noted crest protein with urobilinogen of 2, WBC 1-3 with rare bacteria EKG showed normal sinus rhythm with right bundle branch block without any acute ST-T changes, QTC 547 Assessment and plan: This is 86 year female with past medical history of osteoarthritis and remote history of rheumatoid arthritis came in with one-week history of progressive difficulty with ambulation and fall found to have decrease R ON in bilateral knees with warmness likely suggestive of severe osteoarthritis 1. Mechanical fall - Secondary to severe osteoarthritis limiting gait - PT eval 2. Severe osteoarthritis - Patient noted afebrile with no elevated white count likely rule out septic process - Start prednisone 10 mg daily - Rheumatology consult in a.m. 3. Hypertension - Confirm the CMR and restart home antihypertensive medication 4. DVT prophylaxis Subcutaneous-heparin 5. DNR/DNI Attending MD Review Statement Attending Statement Attending MD Statement: examined this patient, discuss w/resident/PA/SOIL SCIENTIST, agreed w/resident/PA/SOIL SCIENTIST, reviewed EMR data (avail), reviewed images, amended to note ALEXANDRU SAMUEL MD 09/24/16 0542: Attending MD Review Statement Attending Statement Attending MD Statement: examined this patient, discuss w/resident/PA/SOIL SCIENTIST, agreed w/resident/PA/SOIL SCIENTIST, discussed with family, reviewed EMR data (avail), amended to note Attending Assessment/Plan: The patient is an 86 yo female with h/o HTN and severe osteoarthritis (h/o rheumatoid arthritis in past), S/P prior bilateral knee replacements and shoulder repair who presented in the ED with c/o 1 week h/o progressive weakness and difficulty ambulating. She has had falls at home, however denies any injuries. Has chronic LE edema that is without change. Denies any fever, chills, dyspnea or chest pain. No focal weakness. She is followed by her PCP/ Medicaid Collection Specialist- Dr. Ramirez as an outpatient. She did state she took a prednisone the other day (for 1 day) and did feel better. Physical Exam: VS: T 98.2, P 82, R 20, BP 145/74, PO 97% RA HEENT: eyes- PERRLA, EOMI lety- sl dry mucosa w/o lesions Neck: no bruits or JVD Chest: diminished BS at bases, otherwise clear Cor: RRR,n nl S1, S2 w/o murm Abd: BS+, soft, NT, - HSM Ext: 1+ edema bilat LE w/o significant erythema or tenderness, s/p TKR's bilat Neuro: alert & oriented x 3 with non-focal exam Labs/Tests: as above Impression/Plan: #S/P Falls/Weakness- generalized weakness noted with difficulty ambulating. Most likely secondary to severe arthritis. Plan: Admit to general medicine for evaluation- PT/OT consults. Rheumatology Consult - Dr. Sharpe. Check TSH. #Severe Arthritis- does have h/o rheumatoid arthritis and prior penitentiary Plaquenil therapy. Now with diagnosis of severe osteoarthritis per Dr. Sharpe prior notes. Appears to have responded to low dose prednisone in past and states that she took one the other day and noted improvement. Plan: As above, PT/OT/Rheum consults. Begin empiric Prednisone 10 mg daily today and observe for improvement. Will most likely need short term rehabilitation. #Essential HTN- the patient's meds may have been changed recently and unable to reach pharmacy. Plan: Will continue Amlodipine, Enalapril at present and follow. #Chronic LE Edema- has h/o prior admission for cellulitis, however no evidence of infection at present. Is on Chronic Lasix therapy. Plan: Will observe on Lasix.
--- NOTE | 2016-09-23 18:24 | NUR ---
BED 219-9
--- NOTE | 2016-09-23 18:30 | NUR ---
REPORT GIVEN TO SAMMY CRANE
--- NOTE | 2016-09-23 18:30 | NUR ---
[facility] CALLED FOR TRANSPORT
[2016-09-23 18:50] VITALS: BP 175/80
--- NOTE | 2016-09-23 21:19 | NUR ---
1850 PATIENT ARRIVED TO FLOOR. ALERT AND ORIENTED X 3. DENIES CHEST PAIN. + PULSES. ON ROOM AIR. EXPIRATORY WHEEZING NOTED DENIES SHORTNESS OF BREATH. ECCHYMOTIC SKIN. WEAK GAIT NO DISCOMFORT NOTED. WILL CONTINUE TO MONITOR
--- NOTE | 2016-09-23 21:23 | NUR ---
2000 MILLINER HELPER AWARE OF PT'S BP. MEDICATION ORDERED
[2016-09-23 23:13] VITALS: BP 138/84
--- NOTE | 2016-09-24 05:42 | Admission Certification ---
Admission Certification Certification Statement - As attending physician, I certify that at the time of - admission, based on clinical presentation, severity of - symptoms, need for further diagnostic testing and - therapeutic interventions, and risk of adverse outcomes - without in-hospital treatment, in my clinical assessment, - this patient requires an acute hospital stay for a minimum - of two nights or longer. I have also considered psychsocial - factors such as support system, advanced age, financial - issues, cognitive issues, and failed out-patient treatments, - past re-admission history, safety of patient, and lack of - compliance as applicable. Specific rationale supporting this admission is: The patient presents with weakness and falls at home and is unable to ambulate safely. Needs admission for evaluation of weakness, physical and occupational therapy, severe arthriitis, rheumatology consult.
[2016-09-24 06:48] VITALS: BP 170/70
--- NOTE | 2016-09-24 07:34 | PN- Housestaff ---
ADI WHITE,CASEY 09/24/16 0734: Subjective Follow-up For: fall and wewakness, leg pain Complaints: legs pain b/l Subjective: Patient followed up and examined by me today. She is resting comfortably in bed, not in distress, and her only complaint is b/l legs pain on trying to move, as during admission. She is able to move the feet though. Denies any headache, dizziness, palpitation, nausea, vision changes. Vitals have been stable except for rise in BP when her BP meds were not confirmed yet today. No overnight issues though. Patient is not confused/disoriented today. Review of Systems Constitutional: Reports: see HPI. Objective Last 24 Hrs of Vital Signs/I&O Vital Signs Date Time Temp Pulse Resp B/P B/P Pulse O2 O2 Flow FiO2 Mean Ox Delivery Rate 09/24 2250 97.2 60 18 134/60 97 Room Air 09/24 1852 60 162/90 09/24 1533 Room Air 09/24 1445 98.0 60 20 162/90 95 Room Air 09/24 0830 57 190/84 09/24 0827 57 190/84 09/24 0648 98.2 68 20 170/70 95 Room Air Intake & Output 09/24 1600 09/24 0800 09/24 0000 Intake Total 500 240 Output Total 900 400 Balance -400 -400 240 Intake, Oral 500 240 Output, Urine 900 400 Patient 81.647 kg Weight Physical Exam General Appearance: Alert, Oriented X3, Cooperative, No Acute Distress Other Physical Findings: General: well nourished overweight patient, not in distress Head: Normocephalic, atraumatic Eyes: Pupils normal in size, regular, reacting to light and accommodation, EOM normal Ears: B/l normal on inspection Nose: Normal on inspection Throat/mouth: Moist mucosa today Neck: Supple, full range of motion, no thyromegaly Heart: Regular rate, regular rhythm Lung: Normal breath sound bilaterally , some basal crepts heard occassionally, not in distress Abd: Soft, non-tender, no distention appreciated Back: Normal range of motion Extremities: b/l knee swollen but not tender, swelling has reduced compared to yesterday on admission, no redness, 2+ pedal edema b/l AND TENDER R>L Neurologic: Alert, oriented x3, Cranial exam grossly intact, Speech is clear and coherent Skin: Warm and dry Psychiatric: Calm, cooperative, coherant, not confused anymore Current Medications: Current Medications Sig/Lisa Start time Last Medication Dose Route Stop Time Status Admin Acetaminophen 650 MG .STK-MED ONE 09/24 1113 DC PO 09/24 1114 Acetaminophen 650 MG Q6P PRN 09/23 1745 AC 09/24 PO 1113 Amlodipine Besylate 5 MG ONCE ONE 09/24 1615 DC 09/24 PO 09/24 1616 1852 Heparin Sodium 5,000 UNIT Q8 09/23 1738 AC 09/24 (Porcine) SC 2230 Lisinopril 20 MG DAILY 09/23 2045 AC 09/24 PO 0830 Patient Medication 1 ED .STK-MED ONE 09/24 1252 DC Teaching ED 09/24 1253 Prednisone 10 MG DAILY 09/23 1822 AC 09/24 PO 1112 Assessment/Plan Assessment: 86-year-old female with past medical history of hypertension, osteoarthritis, remote history of rheumatoid arthritis, recently admitted in the [facility] for difficulty ambulation, was brought in by ambulance and her family members after she was having difficulty walking around and even taking steps. In the emergency department, patient was found to be dehydrated, received IV fluids, labs were not significantly deviated from normal limits, chest x-ray was also negative for acute cardiopulmonary changes, urine analysis was hazy with rare bacteria. EKG had prolonged QT interval and right bundle branch block which was old. 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 No open wound noted, but early cellulitis can be a possibility. -We'll watch patient off antibiotic, and serial clinical examination of the legs. -We'll plan to investigate, and/or add antibiotic if suspicion of cellulitis increases #Hypertension -Lisinopril 20mg PO daily ordered. -One time dose of Norvasc 5mg was given for high BP 162/90. Of note, last reading was 190/84. -Will watch closely. Diet: Regular diet DVT prophylaxis with subcutaneous heparin CODE STATUS: DNR/DNI Problem List: 1. Weakness 2. Leg edema 3. Hypertension 4. Frequent falls 5. Unsteady gait 6. Osteoarthritis Pain Ratin Pain Location: legs/knees b/l Pain Goal: Pain 4 or less Pain Plan: home meds and prn Tomorrow's Labs & Rationales: f/u cultures ZACHARIAH WHITE,NUBIA 09/24/16 1200: Attending MD Review Statement Attending Statement Attending MD Statement: examined this patient, discuss w/resident/PA/[employer], agreed w/resident/PA/[employer], reviewed EMR data (avail), discussed with nursing, discussed with case mgmt, amended to note Attending Assessment/Plan: Patient seen and examined. Alert and oriented 3. Complaining of bilateral extremity pain. She reports pain involves her knees and bilateral lower extremities. She reports difficulty ambulating due to this discomfort. Patient had similar presentations in the past. She treated empirically for flareup of her rheumatoid arthritis with oral steroids and she didn't respond to therapy back then. At that time also there was concern for lower extremity cellulitis but she responded off on antibiotic therapy. She presents is similar complaints. There is no erythema overlying extremities at present. She does have bilateral lower extremity swelling. She does have extensive swelling of bilateral knees and not warm to touch. He had diffusely tender. There is extensive degenerative changes. Distal pulses are weakly palpable. Power in upper extremities is 5 over 5. She has no other neurologic deficits. Recommendations: -Patient had similar presentations in the past that responded to oral steroid therapy. Symptoms appeared to be secondary to extensive degenerative joint disease. She has obvious disease of both knees. Unfortunately given her age and comorbidities she is on an optimal candidate for surgical intervention. We' ll continue treatment with oral prednisone for now. -If her lower extremity pain persists despite steroid therapy we'll consider CT of the lumbosacral spine. It is possible she has similar degenerative joint disease there as well. She however denies any back pain at present. Intra- articular steroid injection may also be a consideration if her pain continues to persist. -Resume her amlodipine and Lasix for blood pressure control.
[2016-09-24 08:27] VITALS: BP 190/84
[2016-09-24 14:45] VITALS: BP 162/90
--- NOTE | 2016-09-24 15:03 | Discharge Summary ---
Visit Information Visit Dates Admission Date: 09/23/16 Discharge Date: 09/26/2016 Hospital Course Course Attending Physician: NUBIA SONI M.D Primary Care Physician: BRAULIO SHARPE MD Hospital Course: 86-year-old female with past medical history of hypertension, osteoarthritis, remote history of rheumatoid arthritis, recently admitted in the [facility] for difficulty ambulation, was brought in by ambulance and her family members after she was having difficulty walking around and even taking steps. In the emergency department, patient was found to be dehydrated, received IV fluids, labs were not significantly deviated from normal limits, chest x-ray was also negative for acute cardiopulmonary changes, urine analysis was hazy with rare bacteria. EKG had prolonged QT interval and right bundle branch block which was old. She admitted to general medicine floor and we managed her for the following conditions: Frequent mechanical falls Possibly secondary to severe osteoarthritis and deconditioning. During the course of the stay Physical therapy evaluated the patient and recommended STR placement/discharge. This patient lives alone in her house, although her family members who live in the neighborhood and visit her daily. She will benefit from further rehabilitation to regain her ambulation capacity prior to going home. We are discharging the patient to short-term rehabilitation Severe osteoarthritis Patient has history of severe osteoarthritis. During the course of this admission we kept the patient on pain medication to relieve the pain and facilitating movement. She was also started on prednisone 10 mg daily. 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 Hypertension Patient has history of hypertension at home with her records shows that she is just on Lisinopril 20mg PO daily. Medication claim history the patient was also on amlodipine and Lasix but last filled his medication on 04/26/2016. One time dose of Norvasc 5mg was given for high BP 190/84. She never required subsequent Norvasc dose and because of that we did not restart her previous Norvasc for blood pressure control. Blood pressure remained well-controlled during the course of the stay predominantly around 130/70. Complications: None Allergies: Coded Allergies: epinephrine (UNKNOWN PER PT 06/04/16) Significant Procedures: Hip CT: 1. Diffuse osteopenia. No acute fracture or dislocation. 2. Multilevel degenerative changes in the lower lumbar spine and grade 1 spondylolisthesis listhesis of L4 on L5 with bilateral L4 pars defects. Pertinent Lab Results: Laboratory Tests 09/23 09/23 1741 1618 Chemistry Lactic Acid Cancelled Urines Urine Color (YEL,AMB,STR) YEL Urine Clarity (CLEAR) CLEAR Urine pH (5.0 - 8.0) 6.5 Ur Specific Rigby (1.001 - 1.035) 1.020 Urine Protein (NEG,<30 MG/DL) TRACE H Urine Ketones (NEG) NEG Urine Nitrite (NEG) NEG Urine Bilirubin (NEG) NEG Urine Urobilinogen (0.1 - 1.0 EU/dl) 2.0 H Ur Leukocyte Esterase (NEG) NEG Ur Microscopic SEDIMENT EXAMINED Urine RBC (0 - 5 /HPF) RARE Urine WBC (0 - 2 /HPF) 1-3 H Ur Epithelial Cells (NONE,FEW) RARE Urine Bacteria (NEG/NONE) RARE H Hyaline Casts (0/LPF) RARE H Urine Hemoglobin (NEG) NEG Urine Glucose (N MG/DL) NEG 09/23 1445 Chemistry Sodium (137 - 145 mmol/L) 143 Potassium (3.5 - 5.1 mmol/L) 4.7 Chloride (98 - 107 mmol/L) 106 Carbon Dioxide (22 - 30 mmol/L) 27 Anion Gap (5 - 16) 11 BUN (7 - 17 mg/dL) 16 Creatinine (0.5 - 1.0 mg/dL) 0.8 Estimated GFR (>60 ml/min) > 60 BUN/Creatinine Ratio (7 - 25 %) 20.0 Glucose (65 - 99 mg/dL) 90 Lactic Acid (0.7 - 2.1 mmol/L) 1.7 Calcium (8.4 - 10.2 mg/dL) 9.7 Total Bilirubin (0.2 - 1.3 mg/dL) 0.7 AST (14 - 36 U/L) 31 ALT (9 - 52 U/L) 19 Alkaline Phosphatase (<127 U/L) 65 Troponin I (< 0.11 ng/ml) 0.01 Total Protein (6.3 - 8.2 g/dL) 7.2 Albumin (3.5 - 5.0 g/dL) 4.2 Globulin (1.9 - 4.2 gm/dL) 3.0 Albumin/Globulin Ratio (1.1 - 2.2 %) 1.4 Hematology CBC w Diff NO MAN DIFF REQ WBC (4.8 - 10.8 /CUMM) 6.2 RBC (4.20 - 5.40 /CUMM) 4.63 Hgb (12.0 - 16.0 G/DL) 12.6 Hct (37 - 47 %) 38.1 MCV (81.0 - 99.0 FL) 82.2 MCH (27.0 - 31.0 PG) 27.1 RDW (11.5 - 14.5 %) 14.9 H Plt Count (130 - 400 /CUMM) 296 MPV (7.4 - 10.4 FL) 8.4 Gran % (42.2 - 75.2 %) 70.6 Lymphocytes % (20.5 - 51.1 %) 20.9 Monocytes % (1.7 - 9.3 %) 4.7 Eosinophils % (0 - 5 %) 1.4 Basophils % (0.0 - 2.0 %) 2.4 H Absolute Granulocytes (1.4 - 6.5 /CUMM) 4.4 Absolute Lymphocytes (1.2 - 3.4 /CUMM) 1.3 Absolute Monocytes (0.10 - 0.60 /CUMM) 0.3 Absolute Eosinophils (0.0 - 0.7 /CUMM) 0.1 Absolute Basophils (0.0 - 0.2 /CUMM) 0.1 PUBS MCHC (33.0 - 37.0 G/DL) 33.0 Disposition Summary Disposition Principal Diagnosis: Joint pain Frequent falls Additional Diagnosis: Hypertension Discharge Disposition: SNF Discharge Instructions General Discharge Information Code Status: Do Not Resucitate/Intubat Patient's Diet: Regular diet Patient's Activity: As tolerated Follow-Up Instructions/Appts: Please call and make a follow-up with your primary care physician within one week after discharge Medications at Discharge Discharge Medications: Stop taking the following medications: Furosemide (Lasix) 20 MG TABLET ORAL DAILY Qty = 30 Amlodipine Besylate (Amlodipine Besylate) 5 MG TABLET ORAL DAILY Continue taking these medications: Enalapril Maleate (Enalapril Maleate) 20 MG TABLET 1 Tablet ORAL DAILY Qty = 90 Comments: NOT GIVEN IN HOSPITAL Aspirin (Ecotrin*) 81 MG TABLET.DR 1 Tablet ORAL DAILY Comments: NOT GIVEN IN HOSPITAL Cholecalciferol (Vitamin D3) (Vitamin D3) 2,000 UNIT TABLET 1 Tablet ORAL DAILY Comments: NOT GIVEN IN HOSPITAL Start taking the following new medications: Prednisone (Prednisone) 10 MG TABLET 10 Milligram ORAL DAILY Qty = 3 No Refills Comments: Last Taken:09/26/16 Time:1000 Copies To: DELL WHITE,BRAULIO Squires Attending MD Review Statement Documenting Attending: NUBIA SONI M.D Other Findings: I have reviewed the discharge summary.
--- NOTE | 2016-09-24 21:00 | NUR ---
LATE ENTRY: PT BP HAS BEEN ELEVATED TODAY @0648 170/70, @0816 190/84, @ 1410 162/90, @ 1500 182/88. PT WAS TREATED WITH LISINOPRIL 20MG, AND AMLODAPINE 5MG. MD PEÑA AND ALYCIA MAXWELL.
[2016-09-24 22:50] VITALS: BP 134/60
[2016-09-25 03:05] VITALS: BP 118/58
[2016-09-25 06:16] VITALS: BP 140/90
--- NOTE | 2016-09-25 07:16 | PN- Housestaff ---
ADI WHITE,CASEY 09/25/16 0716: Subjective Follow-up For: fall and wewakness, leg pain Complaints: no complaints Subjective: I followed up and examined the patient today. She is resting comfortably in her bed, not in distress, mentioned that she started walking comfortably with her walker yesterday around the general medical floor. She did not have trouble while doing so. Vitals have been stable, no other overnight events. Patient is well-oriented and is not confused. Review of Systems Constitutional: Reports: no symptoms. Objective Last 24 Hrs of Vital Signs/I&O Vital Signs Date Time Temp Pulse Resp B/P B/P Pulse O2 O2 Flow FiO2 Mean Ox Delivery Rate 09/25 1510 98.6 68 20 152/94 95 Room Air 09/25 1020 59 140/90 09/25 0616 98.3 59 20 140/90 95 Room Air 09/25 0305 98.0 106 20 118/58 94 Room Air 09/24 2250 97.2 60 18 134/60 97 Room Air Intake & Output 09/25 1600 09/25 0800 09/25 0000 Intake Total 400 250 100 Output Total 350 400 200 Balance 50 -150 -100 Intake, IV 10 Intake, Oral 400 240 100 Number 0 Bowel Movements Output, Urine 350 400 200 Physical Exam General Appearance: Alert, Oriented X3, Cooperative, No Acute Distress Other Physical Findings: General: well nourished overweight patient, not in distress Head: Normocephalic, atraumatic Eyes: Pupils normal in size, regular, reacting to light and accommodation, EOM normal Ears: B/l normal on inspection Nose: Normal on inspection Throat/mouth: Moist mucosa Neck: Supple, full range of motion, no thyromegaly Heart: Regular rate, regular rhythm Lung: Normal breath sound bilaterally , some basal crepts heard occassionally, not in distress Abd: Soft, non-tender, no distention appreciated Back: Normal range of motion Extremities: b/l knee swelling has gotten better, but the patient still has tender right anterior guzmán. She is able to raise her left lower extremity without trouble, but has difficulty/pain while lifting her right lower extremity , no change since yesterday. No bruises around right side of hip. Neurologic: Alert, oriented x3, Cranial exam grossly intact, Speech is clear and coherent Skin: Warm and dry Psychiatric: Calm, cooperative, coherant, not confused anymore Current Medications: Current Medications Sig/Lisa Start time Last Medication Dose Route Stop Time Status Admin Acetaminophen 650 MG Q6P PRN 09/23 1745 AC 09/25 PO 1452 Heparin Sodium 5,000 UNIT Q8 09/23 1738 AC 09/25 (Porcine) SC 1441 Lisinopril 20 MG DAILY 09/23 2045 AC 09/25 PO 1020 Prednisone 10 MG DAILY 09/23 1822 AC 09/25 PO 1020 Assessment/Plan Assessment: 86-year-old female with past medical history of hypertension, osteoarthritis, remote history of rheumatoid arthritis, recently admitted in the [facility] for difficulty ambulation, was brought in by ambulance and her family members after she was having difficulty walking around and even taking steps. In the emergency department, patient was found to be dehydrated, received IV fluids, labs were not significantly deviated from normal limits, chest x-ray was also negative for acute cardiopulmonary changes, urine analysis was hazy with rare bacteria. EKG had prolonged QT interval and right bundle branch block which was old. She is currently being managed in the general medical floor for the following issues: #Frequent mechanical falls -Possibly secondary to severe osteoarthritis -No falls at [facility] -Physical therapy evaluation in the morning recommended STR placement/discharge -Of note, she lives alone in her house, although her family members who live in the neighborhood and visit her daily #Severe osteoarthritis -Pain management, and prednisone at 10 mg oral daily -Parquet Floor Layer Dr Braulio Farrar MD, who is also her primary care physician, was contacted yesterday and today but I found out that he is not in state currently. Call was made as a courtesy call only, not for a formal consultation. #Bilateral leg pain and swelling, to rule out cellulitis -Patient is currently afebrile with normal WBC count, but both her legs are swollen, tender and warm, although not pink/red. No open wound noted, but early cellulitis can be a possibility. -We'll watch patient off antibiotic, and serial clinical examination of the legs. -We'll plan to investigate, and/or add antibiotic if suspicion of cellulitis increases #Hip pain, Rt side Patient complains of pain over her right lower extremity, mostly over her guzmán, but he was unable to raise her right leg as easily as the left one. Thus hip fracture/dislocation cannot be completely ruled out at this point. CAT scan of pelvis to rule out right hip/femur fracture/displacement ordered. Will follow accordingly. #Hypertension -Lisinopril 20mg PO daily ordered. -One time dose of Norvasc 5mg was given for high BP 162/90. Of note, last reading was 190/84. -Will watch closely. Diet: Regular diet DVT prophylaxis with subcutaneous heparin CODE STATUS: DNR/DNI Problem List: 1. Weakness 2. Osteoarthritis 3. Leg edema 4. Hypertension 5. Frequent falls Pain Ratin Pain Location: right leg, when it hurts, else none (0) Pain Goal: Pain 4 or less Pain Plan: prn Tomorrow's Labs & Rationales: f/u CT pelvis to rule out hip fracture/displacement NUBIA SONI MD 09/25/16 1408: Attending MD Review Statement Attending Statement Attending MD Statement: examined this patient, discuss w/resident/PA/GRE[employer] MAN, agreed w/resident/PA/GRE[employer] MAN, reviewed EMR data (avail), discussed with nursing, discussed with case mgmt, amended to note Attending Assessment/Plan: Patient seen and examined. Very jovial and not in any acute distress. She reports feeling better this morning. She reports been able to move her leg. She however reports difficulty moving her right lower extremity due to pain in the hip. Blood pressure was elevated yesterday requiring a dose of Norvasc in addition to her lisinopril. Blood pressure has improved so far today. Recommendations: -She appears to be responding to steroid therapy. -Obtain CT scan of the hip to rule out occult fracture on the right. -Anticipate discharge tomorrow to custodial facility if she remains medically stable.
[2016-09-25 15:10] VITALS: BP 152/94
--- NOTE | 2016-09-25 16:36 | CT SCAN REPORT ---
EXAMINATION: CT PELVIS WITHOUT CONTRAST CLINICAL INFORMATION: Difficulty and pain on moving right lower extremity. History of recent fall. Rule out right hip fracture. COMPARISON: Bone densitometry dated 09/26/2015 TECHNIQUE: Helical scanning was performed with submillimeter collimation through the pelvis. Sagittal and coronal multiplanar 2-D reconstructions were obtained. DLP: 977.53 mGy-cm FINDINGS: There is diffuse osteopenia. No acute fracture of the right hip or the bony pelvis/left hip is seen. There is a convex left lumbar scoliosis with multilevel moderate degenerative changes in the lower lumbar spine. Pseudoarthrosis of the right L5 transverse process to the sacrum is seen. Grade 1 anterolistheses of L4 on 5 is noted subtle bilateral pars defects seen. Moderate facet arthropathy is present in the lower lumbar spine. Incidentally noted is a partially included densely calcified gallstone within the gallbladder and the right upper quadrant. Moderate atherosclerotic vascular calcifications are noted. The bladder and included small and large bowel loops are unremarkable. The patient appears to be status post hysterectomy and presumably oophorectomy. There is a tiny fat-containing umbilical hernia. IMPRESSION: 1. Diffuse osteopenia. No acute fracture or dislocation. 2. Multilevel degenerative changes in the lower lumbar spine and grade 1 spondylolisthesis listhesis of L4 on L5 with bilateral L4 pars defects.
--- NOTE | 2016-09-25 21:22 | Patient Discharge Instructions ---
Discharge Instructions General Discharge Information You were seen/treated for: Weakness, leg swelling, frequent falls Special Instructions: Please visit your primary care provider within 10 days of discharge. Please return to emergency if symptoms worsen. Diet Continue normal diet: Yes Recommended Diet: Heart Healthy Activity Full Activity/No Limits: No Activity Self Limited: Yes Acute Coronary Syndrome Inclusion Criteria At DC or during hospital stay patient has or had the following: ACS DIAGNOSIS No Discharge Core Measures Meds if any: Prescribed or Continued at Discharge Meds if any: NOT Prescribed or Continued at Discharge Congestive Heart Failure Inclusion Criteria At DC or during hospital stay patient has or had the following: CHF DIAGNOSIS No Discharge Core Measures Meds if any: Prescribed or Continued at Discharge Meds if any: NOT Prescribed or Continued at Discharge Cerebrovascular accident Inclusion Criteria At DC or during hospital stay patient has or had the following: CVA/TIA Diagnosis No Discharge Core Measures Meds if any: Prescribed or Continued at Discharge Meds if any: NOT Prescribed or Continued at Discharge Venous thromboembolism Inclusion Criteria VTE Diagnosis No VTE Type NONE VTE Confirmed by (Test) NONE Discharge Core Measures - Per Current guidelines, there needs to be overlap - treatment for the first 5 days of Warfarin therapy. - If discharged on Warfarin prior to 5 days of - overlap therapy, the patient will need to be - assessed for post discharge needs including - *Post discharge parental anticoagulation - *Warfarin and/or parental anticoagulation education - *Follow up date to check INR post discharge At least 5 days overlap therapy as Inpatient No Meds if any: Prescribed or Continued at Discharge Note: Overlap Therapy is Warfarin and Anticoagulant Meds if any: NOT Prescribed or Continued at Discharge
[2016-09-25 22:26] VITALS: BP 132/88
[2016-09-26 07:03] VITALS: BP 130/72
--- NOTE | 2016-09-26 07:06 | PN- Housestaff ---
ADI WHITE,CASEY 09/26/16 0706: Subjective Follow-up For: fall and wewakness, leg pain Complaints: no complaints Subjective: I followed up and examined the patient today. She is resting comfortably in her bed, not in distress, and she has been walking around the floor with a walker. She did not have trouble while doing so. Vitals have been stable, no other overnight events. Patient is well-oriented and is not confused. Review of Systems Constitutional: Reports: no symptoms. Objective Last 24 Hrs of Vital Signs/I&O Vital Signs Date Time Temp Pulse Resp B/P B/P Pulse O2 O2 Flow FiO2 Mean Ox Delivery Rate 09/26 1110 97.6 54 20 130/72 09/26 1005 54 130/72 09/26 0703 97.6 54 20 130/72 97 Room Air 09/25 2226 97.5 62 20 132/88 96 Room Air Intake & Output 09/26 1600 09/26 0800 09/26 0000 Intake Total 250 420 Output Total 100 200 Balance 150 220 Intake, Oral 250 420 Output, Urine 100 200 Physical Exam General Appearance: Alert, Oriented X3, Cooperative, No Acute Distress Other Physical Findings: General: well nourished overweight patient, not in distress Head: Normocephalic, atraumatic Eyes: Pupils normal in size, regular, reacting to light and accommodation, EOM normal Ears: B/l normal on inspection Nose: Normal on inspection Throat/mouth: Moist mucosa Neck: Supple, full range of motion, no thyromegaly Heart: Regular rate, regular rhythm Lung: Normal breath sound bilaterally , some basal crepts heard occassionally, not in distress Abd: Soft, non-tender, no distention appreciated Back: Normal range of motion Extremities: b/l knee swelling has gotten better, tenderness of her right anterior guzmán has decreased today. She is able to raise her b/l legs more today. No bruises around right side of hip. Neurologic: Alert, oriented x3, Cranial exam grossly intact, Speech is clear and coherent Skin: Warm and dry Psychiatric: Calm, cooperative, coherant, not confused anymore Current Medications: Current Medications Sig/Lisa Start time Last Medication Dose Route Stop Time Status Admin Acetaminophen 650 MG Q6P PRN 09/23 1745 DCD 09/25 PO 1452 Heparin Sodium 5,000 UNIT Q8 09/23 1738 DCD 09/26 (Porcine) SC 0613 Lisinopril 20 MG DAILY 09/23 2044 DCD 09/26 PO 1005 Patient Medication 1 ED .STK-MED ONE 09/26 1336 IN Teaching ED 09/26 1337 Prednisone 10 MG DAILY 09/23 1822 DCD 09/26 PO 1005 Assessment/Plan Assessment: 86-year-old female with past medical history of hypertension, osteoarthritis, remote history of rheumatoid arthritis, recently admitted in the [facility] for difficulty ambulation, was brought in by ambulance and her family members after she was having difficulty walking around and even taking steps. In the emergency department, patient was found to be dehydrated, received IV fluids, labs were not significantly deviated from normal limits, chest x-ray was also negative for acute cardiopulmonary changes, urine analysis was hazy with rare bacteria. EKG had prolonged QT interval and right bundle branch block which was old. She is currently being managed in the general medical floor for the following issues: #Frequent mechanical falls -Possibly secondary to severe osteoarthritis -No falls at [facility] -Physical therapy evaluation in the morning recommended STR placement/discharge -Of note, she lives alone in her house, although her family members who live in the neighborhood and visit her daily #Severe osteoarthritis -Pain management, and prednisone at 10 mg oral daily -Cane Feeder Dr Braulio Farrar MD,'s office was notified that her patient has been admitted to [facility] as a courtesy notification. No formal consultation requested at this point. #Bilateral leg pain and swelling, getting better -Patient is currently afebrile with normal WBC count, but both her legs are swollen although less than yesterday. No open wound noted -Patient was watched off antibiotic -We'll plan to investigate, and/or add antibiotic if suspicion of cellulitis increases #Hip pain, Rt side Patient complained of pain over her right lower extremity, mostly over her guzmán, but he was unable to raise her right leg as easily as the left one. Thus hip fracture/dislocation could not be completely ruled out. Thus a CAT scan of pelvis to rule out right hip/femur fracture/displacement was ordered which ruled out any fracture/dislocations. #Hypertension -Lisinopril 20mg PO daily ordered. -One time dose of Norvasc 5mg was given for high BP 162/90. Of note, last reading was 190/84. -Will watch closely. -Patient was not restarted on Norvasc or Lasix. #Discharge disposition: Patient is much better than when she came in to the emergency department, has been improving and much stable. Her blood pressure medications was readjusted and the patient is tolerating it well. Patient however requires further physical therapy, is thus being discharged to a short- term rehabilitation center today. Diet: Regular diet DVT prophylaxis with subcutaneous heparin CODE STATUS: DNR/DNI Problem List: 1. Osteoarthritis 2. Weakness 3. Leg edema 4. Hypertension 5. Frequent falls Pain Ratin Pain Location: legs Pain Goal: Pain 4 or less Pain Plan: prn and prednisone 10mg daily Tomorrow's Labs & Rationales: - NUBIA SONI MD 09/26/16 1245: Attending MD Review Statement Attending Statement Attending MD Statement: examined this patient, discuss w/resident/PA/ETL INFORMATICA ARCHITECT, agreed w/resident/PA/ETL INFORMATICA ARCHITECT, reviewed EMR data (avail), discussed with nursing, discussed with case mgmt, amended to note Attending Assessment/Plan: Patient seen and examined. Resting comfortably and not in any acute distress. No issues overnight reported by nursing staff. She continues to ambulate with the aid of physical therapy. Imaging studies yesterday showed no evidence of acute fracture. She does have extensive degenerative joint disease. She is medically stable to be discharged today. She will continue on prednisone for 3 more days after which is a be stopped. Her blood pressure is controlled on enalapril only. Amlodipine and Lasix have been discontinued as patient was no longer on these medications at home at baseline.
[2016-09-26] MEDS ORDERED: PREDNISONE10 M2 PO (10:24)
[2016-09-26 11:10] VITALS: BP 130/72
== END 2016-09-26 12:40 | DRG 554 ==
LOC: ERH 14:22 → ERHI 16:57 → 2NB 16:57 → ENRESERV 18:19 → 2NB 18:45 → ENPENDDIS 09-26 10:18 → 2NB 09-26 12:40
PROVIDERS: Physician Assistant Medical; ADMIT Internal Medicine
DX: M15.9 Polyosteoarthritis, unspecified (principal); E86.0 Dehydration; M06.9 Rheumatoid arthritis, unspecified; I10 Essential (primary) hypertension; Z91.81 History of falling; Z87.891 Personal history of nicotine dependence; Z66 Do not resuscitate; R26.9 Unspecified abnormalities of gait and mobility
CPT/HCPCS: 2NSBP; 81001; 87040; 87086; 93005; 93010; 96360; 97110-GO; 97116-GO; 97161-GP; 97530-GO; J1644; J7512

== ENCOUNTER 2017-12-09 14:56 | Inpatient (IN) | payer OTHER, MEDICARE ==
[~2017-12-09] VITALS: Ht 167.6 cm; Wt 71.8 kg
[~2017-12-09 14:56] MED LIST changes: +AMOX-CLAV 500-1 EACH PO; +FUROSEMIDE20 M1 PO
--- NOTE | 2017-12-09 16:09 | CT SCAN REPORT ---
EXAMINATION: CT HEAD WITHOUT CONTRAST CLINICAL INFORMATION: Dizziness. Headache. COMPARISON: CT head 08/27/2015 TECHNIQUE: Contiguous axial imaging was performed from the skull base to vertex without intravenous administration of contrast. DLP: 595.03 mGy-cm FINDINGS: There is no evidence of acute intracranial hemorrhage or territorial infarction. No abnormal mass effect or midline shift is seen. [place] to white matter differentiation is well preserved. No extra-axial fluid collections are identified. Lacunar infarct versus prominent perivascular space in the right basal ganglia remains stable. There is atrophy with prominence of the ventricles and the sulci and hypodensity of the periventricular white matter due to chronic small vessel ischemic disease. There is vascular calcifications of the internal carotid arteries bilaterally. The osseous structures and soft tissues are normal. The mastoid air cells and visualized portions of the paranasal sinuses are well aerated. IMPRESSION: No acute intracranial pathology.
[2017-12-09 16:17] LABS: ABSOLUTE BASOPHIL COUNT 0.1 /CUMM (0.0-0.2); ABSOLUTE EOSINOPHIL COUNT 0 /CUMM (0.0-0.7); ABSOLUTE GRANULOCYTE CT 6.2 /CUMM (1.4-6.5); ABSOLUTE MONOCYTE COUNT 0.3 /CUMM (0.10-0.60); EOSINOPHIL % 0.5 % (0-5); GRANULOCYTE % 81.9 % (42.2-75.2); HEMATOCRIT 36.5 % (37-47); MEAN CORPUSCULAR HGB 27.6 PG (27.0-31.0); MEAN CORPUSCULAR HGB CONC 33.4 G/DL (33.0-37.0); MEAN CORPUSCULAR VOLUME 82.7 FL (81.0-99.0); MEAN PLATELET VOLUME 7.7 FL (7.4-10.4); PLATELET COUNT 353 /CUMM (130-400); RBC DISTRIBUTION WIDTH 14.9 % (11.5-14.5); RED BLOOD CELL CT 4.42 /CUMM (4.20-5.40); WHITE BLOOD CELL COUNT 7.6 /CUMM (4.8-10.8)
--- NOTE | 2017-12-09 16:30 | CT SCAN REPORT ---
EXAMINATION: CT ABDOMEN AND PELVIS WITHOUT CONTRAST CLINICAL INFORMATION: Dizziness. Headache. Nausea and vomiting. COMPARISON: CT pelvis 09/25/2016. Chest x-ray 01/15/2014 dictated report. Images not available for review. TECHNIQUE: Multidetector volumetric imaging was performed from the superior aspect of the liver through the pubic symphysis. Sagittal and coronal reformatted images were obtained on the technologist's workstation. DLP: 388.79 mGy-cm FINDINGS: LUNG BASES: The visualized lung bases are unremarkable. LIVER, GALLBLADDER, AND BILIARY TREE: The liver is normal in size, shape, and attenuation. No focal hepatic lesion or biliary ductal dilatation is present. There is a 2 cm calcified gallstone within the gallbladder. No gallbladder wall thickening or pericholecystic fluid. No dilatation of the biliary tree. PANCREAS: Unremarkable. SPLEEN: Unremarkable. ADRENAL GLANDS: Unremarkable. KIDNEYS AND URETERS: There is mild fullness of the right renal collecting system and right proximal ureter but the distal ureter is of normal caliber. There are 2 small calcifications in the right pelvis that are phleboliths. No ureteral calculi. There is no renal calculus. The left kidney and collecting system are normal. There is a 2 cm cortical cyst at the upper pole of the right kidney. BLADDER: Unremarkable GASTROINTESTINAL TRACT: There is moderate diverticulosis of the colon. No diverticulitis. No acute change of the bowel. No bowel obstruction. No bowel wall thickening or edema. Moderate volume of stool in the colon. The appendix is normal. The small bowel loops are unremarkable. ABDOMINAL WALL: No significant hernia is appreciated. LYMPH NODES: Normal VASCULAR: Unremarkable PELVIC VISCERA: Status post hysterectomy. OSSEOUS STRUCTURES: Degenerative spondylosis spine with multilevel disc height narrowing, facet joint arthrosis and vacuum disc phenomenon. There is anterolisthesis of L4 on L5 due to the facet joint disease. There is anterior wedge compression deformity of T11 vertebrae with about 40% loss of height of the vertebrae. Levoscoliosis of the thoracolumbar junction. Degenerative joint disease of hips bilateral with small spurs of the femoral heads and both hips. IMPRESSION: No acute abnormality of the abdomen or pelvis.
--- NOTE | 2017-12-09 17:00 | ED GENERAL ADULT ---
History of Present Illness General Chief Complaint: General Adult Stated Complaint: WEAKNESS, +NV -D, DIZZINESS Source: patient Exam Limitations: no limitations Vital Signs & Intake/Output Vital Signs & Intake/Output Vital Signs Date Time Temp Pulse Resp B/P B/P Pulse O2 O2 Flow FiO2 Mean Ox Delivery Rate 12/10 0006 98.0 65 20 168/84 95 Room Air 12/09 2221 98.5 56 18 170/70 98 Room Air 12/09 1905 98.4 63 18 171/72 97 Room Air 12/09 1804 Room Air 12/09 1738 98.8 56 18 164/73 96 12/09 1500 97.0 70 16 175/90 99 Room Air ED Intake and Output 12/10 0000 12/09 1200 Intake Total 1000 Output Total 1500 Balance -500 Intake, IV 1000 Output, Urine 1500 Patient 160 lb Weight Weight Reported by Patient Measurement Method Allergies Coded Allergies: epinephrine (UNKNOWN PER PT 06/04/16) Triage Note: PT TO ED WITH C/O A COUPLE EPISODES OF EMESIS SINCE MID MORNING TODAY. ALSO REPORTS PERSISTENT DIZZINESS SINCE EMESIS BEGAN. DENIES CP, SOB OR ABD PAIN. Triage Nurses Notes Reviewed? yes Onset: Abrupt Duration: day(s): Timing: recent history HPI: 12/09/17 5:10 PM 87-year-old female presents to the emergency department with feeling weak and lightheaded and vomiting. No abdominal pain, no fever, no chest pain. No shortness of breath. She has a past medical history of hypertension, arthritis and dementia. Past surgical history for bilateral knee replacement. Currently in the emergency department she is asymptomatic. The son has concerns because she lives alone, and has been unsteady. Her medications include lisinopril and prednisone. (Brody Marie DO) Reconcile Medications Aspirin (Ecotrin*) 81 MG TABLET. 1 TAB PO DAILY HEART HEALTH (Reported) Enalapril Maleate 20 MG TABLET 1 TAB PO DAILY BP (Reported) Furosemide (Lasix) 40 MG TABLET 1 TAB PO DAILY LE EDEMA Prednisone 5 MG TABLET 0 PO TAPER RHEUMATOID ARTHRITIS On Take 02/20-02/25 2 TABLETS TWICE A DAY THEN CONTINUE TAKING 1 TABLET DAILY (Sherie WHITE,Joo Gonzalez) Past History Travel History Traveled to [place] past 21 day No Medical History Any Pertinent Medical History? 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 No (Brody Marie DO) Review of Systems Review of Systems Constitutional: Denies: fever. EENTM: Denies: visual changes. Respiratory: Denies: short of breath. Cardiovascular: Denies: chest pain. GI: Reports: vomiting. Denies: abdominal pain. Genitourinary: Reports: no symptoms. Musculoskeletal: Reports: see HPI. Skin: Denies: rash. Neurological/Psychological: Reports: dementia. Hematologic/Endocrine: Reports: no symptoms. Immunologic/Allergic: Reports: no symptoms. (Brody Marie DO) Physical Exam Physical Exam General Appearance: alert, awake, anxious, mild distress Head: atraumatic, normal appearance Eyes: Bilateral: normal appearance, PERRL, EOMI. Ears, Nose, Throat: normal pharynx, normal ENT inspection Neck: normal inspection, supple, full range of motion Respiratory: normal breath sounds, chest non-tender, no respiratory distress Cardiovascular: regular rate/rhythm Peripheral Pulses: 4+ radial (R), 4+ radial (L) Gastrointestinal: soft, non-tender Back: normal range of motion Extremities: normal inspection Neurologic/Psych: awake, alert, oriented x 3 Skin: intact, normal color, warm/dry Core Measures ACS in differential dx? No CVA/TIA Diagnosis: No Sepsis Present: No Sepsis Focused Exam Completed? No (Brody Marie DO) Progress Differential Diagnoses I considered the following diagnoses in my evaluation of the patient: Plan of Care: Orders Procedure Date/time Status Heart Healthy Diet 12/10 B Active BASIC ELECTROLYTES PLUS BUN&CR 12/10 06 Active PT Evaluate & Treat 12/11 131 Active Pathway - chart 12/11 131 Active House Staff 12/11 131 Active Code Status 12/11 131 Active Turn and Reposition 12/10 57 Active Skin Integrity Protocol 12/10 57 Active CULTURE,URINE 12/11 31 Active URINALYSIS 12/11 31 Complete Weight 12/10 6 Complete Vital Signs 12/10 6 Active Teach/Educate 12/10 6 Active Pain Treatment and Response 12/10 6 Active Nutritional Intake, Monitor 12/10 6 Active Isolation 12/10 6 Active Intake & Output 12/10 6 Active Patient Care Conference 12/10 6 Active Activity/Ambulation 12/10 6 Active VTE Mechanical Prophylaxis 12/10 UNK Active Vital Signs 12/10 UNK Active MISTAKE 12/10 UNK Active Activity/Ambulation 12/10 UNK Active Patient Data 12/09 230 Active Saline Lock 12/09 2202 Active Misc Message 12/09 2202 Active ED Holding Orders 12/09 2202 Active Vital Signs 12/09 2202 Active Code Status 12/09 2202 Complete Admit to inpatient 12/09 220 Active PT Evaluate & Treat 12/09 1906 Active CASE MANAGEMENT CONSULT 12/09 1907 Active TROPONIN LEVEL 12/09 1900 Complete EKG 12/09 1900 Active Intake & Output 12/09 1803 Active TROPONIN LEVEL 12/09 1504 Complete COMPREHENSIVE METABOLIC PANEL 12/09 1504 Complete CBC WITHOUT DIFFERENTIAL 12/09 1504 Complete EKG 12/09 1501 Active Current Medications Sig/Lisa Start time Last Medication Dose Stop Time Status Admin Aspirin Buffered 81 MG DAILY 12/10 899 UNVr (Ecotrin) Enoxaparin Sodium 40 MG DAILY 12/10 899 AC (Lovenox) Furosemide 40 MG DAILY 12/10 899 UNVr (Lasix) Prednisone 5 MG ONCE ONE 12/10 899 UNVr 12/10 09 Lisinopril 20 MG DAILY 12/10 033 UNVr (Prinivil) Laboratory Tests 12/10/17 0040: Urine Color YEL, Urine Clarity CLEAR, Urine pH 7.0, Ur Specific [place] 1.010, Urine Protein NEG, Urine Ketones NEG, Urine Nitrite NEG, Urine Bilirubin NEG, Urine Urobilinogen 0.2, Ur Leukocyte Esterase SMALL H, Ur Microscopic SEDIMENT EXAMINED, Urine RBC 1-3, Urine WBC 5-10 H, Ur Epithelial Cells OCCAS, Urine Bacteria MANY H, Urine Hemoglobin TRACE-INTACT, Urine Glucose NEG 12/09/17 1900: Troponin I < 0.01 12/09/17 1514: Anion Gap 13, Estimated GFR > 60, BUN/Creatinine Ratio 21.4, Glucose 124 H, Calcium 9.6, Total Bilirubin 0.4, AST 24, ALT 22, Alkaline Phosphatase 66, Troponin I < 0.01, Total Protein 7.1, Albumin 4.1, Globulin 3.0, Albumin/ Globulin Ratio 1.4, CBC w Diff NO MAN DIFF REQ, RBC 4.42, MCV 82.7, MCH 27.6, MCHC 33.4, RDW 14.9 H, MPV 7.7, Gran % 81.9 H, Lymphocytes % 13.3 L, Monocytes % 3.3, Eosinophils % 0.5, Basophils % 1.0, Absolute Granulocytes 6.2, Absolute Lymphocytes 1.0 L, Absolute Monocytes 0.3, Absolute Eosinophils 0, Absolute Basophils 0.1 Microbiology 12/10 004 URINE ROUT: Urine Culture - RECD Initial ED EKG: NSR, RBBB, nonspecific ST T wave chg Prior EKG: unchanged (Brody Marie DO) Departure Departure Disposition: STILL A PATIENT Condition: Stable Clinical Impression Primary Impression: Weakness Secondary Impressions: Vomiting Referrals: Antonio PATHAK,Adeline Elizabeth (PCP/Family) Departure Forms: Customer Survey General Discharge Information Comments The patient's labs are unremarkable. CT scan of the abdomen and pelvis is negative for acute pathology, serial troponins were obtained the repeat is pending. Repeat EKG was unchanged. She is asymptomatic in the ED. Because the son is concerned we'll consider case management and PT consultation. The patient was signed out to Dr. Rehman at 7 PM. (Brody Marie DO) Admission Note Spoke With: Kristi Long MD Documentation of Exam: Documentation of any treatments & extenuating circumstances including Concerns Regarding Discharge (functional status, medication knowledge or non-compliance, living conditions, etc.) that warrant an admission rather than observation: pt signed out to me... given her weakness, difficulty ambulating... pt merits admission for further evaluation, potential placement. (Sherie WHITE,Joo Gonzalez) Critical Care Note Critical Care Note Critical Care Time: non-applicable (Brody Marie DO)
[2017-12-09] MEDS ORDERED: ASPIRIN EC81 M1 PO (22:26)
--- NOTE | 2017-12-09 23:19 | History & Physical ---
Logan Longo 12/09/17 2319: General Information and HPI MD Statement: I have seen and personally examined COLTON GIRON and documented this H&P. The patient is a 87 year old F who presented with a patient stated chief complaint of [altered mental status]. Source of Information: patient, family, old records Exam Limitations: confusion History of Present Illness: 87-year-old woman past medical history significant for rheumatoid arthritis on chronic prednisone, hypertension, osteoarthritis, first-degree AV block, stage I diastolic CHF brought in by family as she was noted to have multiple episodes of vomiting of 1 day duration prior to admission. Her primary care doctor retired and they brought her in because they were worried that she might be dehydrated. On interview she denied any fever nausea, any further episodes of vomiting, dizziness, abdominal pain, dysuria but did complain of increased urinary frequency. She did endorse that she has had multiple falls over this year. Last one being 4 months ago At baseline she walks with a walker. States that she lives by herself however her sons come visit her daily and her granddaughter lives upstairs. Allergies/Medications Allergies: Coded Allergies: epinephrine (UNKNOWN PER PT 06/04/16) Home Med list Aspirin (Ecotrin*) 81 MG TABLET.DR 1 TAB PO DAILY HEART HEALTH (Reported) Enalapril Maleate 20 MG TABLET 1 TAB PO DAILY BP (Reported) Furosemide (Lasix) 40 MG TABLET 1 TAB PO DAILY LE EDEMA Prednisone 5 MG TABLET 0 PO TAPER RHEUMATOID ARTHRITIS On Take 02/20-02/25 2 TABLETS TWICE A DAY THEN CONTINUE TAKING 1 TABLET DAILY Compliance With Home Meds: GOOD Past History Travel History Traveled to [place] past 21 day No Medical History Neurological: NONE EENT: cataracts, glaucoma Cardiovascular: hypertension Respiratory: NONE Gastrointestinal: NONE Hepatic: NONE Renal: NONE Musculoskeletal: osteoarthritis, rheumatoid arthritis Psychiatric: anxiety Endocrine: NONE Blood Disorders: NONE Cancer(s): NONE IRONING PLEATER/Reproductive: HYSTERECTOMY History of MRSA: No History of VRE: No History of CDIFF: No Influenza Vaccine: 02/10/17 Surgical History Surgical History: hysterectomy, BILAT KNEE REPLACEMENT, L SHOULDER REPAIR Past Family/Social History Family History Relations & Conditions if any SISTER FH: diabetes mellitus Psychosocial History Who Do You Live With? self Services at Home: Nursing Primary Language: Japanese Functional Ability ADLs Independent: dressing, eating, toileting, bathing. Ambulation: walker IADLs Independent: housework, food prep, telephone. Review of Systems Review of Systems Constitutional: Reports: no symptoms. Exam & Diagnostic Data Last 24 Hrs of Vital Signs/I&O Vital Signs Date Time Temp Pulse Resp B/P B/P Pulse O2 O2 Flow FiO2 Mean Ox Delivery Rate 12/10 0006 98.0 65 20 168/84 95 Room Air 12/09 2221 98.5 56 18 170/70 98 Room Air 12/09 1905 98.4 63 18 171/72 97 Room Air 12/09 1804 Room Air 12/09 1738 98.8 56 18 164/73 96 12/09 1500 97.0 70 16 175/90 99 Room Air Intake & Output 12/10 0800 12/10 0000 12/09 1600 Intake Total 1000 Output Total 350 1500 Balance -350 -500 Intake, IV 1000 Output, Urine 350 1500 Patient 159 lb 160 lb Weight Weight Bed scale Reported by Patient Measurement Method Physical Exam General Appearance Alert (oriented to person, place) Skin No Significant Lesion HEENT Atraumatic, PERRLA, EOMI, Mucous Membr. moist/pink Cardiovascular Regular Rate, Normal S1, Normal S2 Lungs Clear to Auscultation, Normal Air Movement Abdomen Normal Bowel Sounds, Soft, No Tenderness Extremities No Edema Last 24 Hrs of Labs/Tony: Laboratory Tests 12/10/17 0040: Urine Color YEL, Urine Clarity CLEAR, Urine pH 7.0, Ur Specific [place] 1.010, Urine Protein NEG, Urine Ketones NEG, Urine Nitrite NEG, Urine Bilirubin NEG, Urine Urobilinogen 0.2, Ur Leukocyte Esterase SMALL H, Ur Microscopic SEDIMENT EXAMINED, Urine RBC 1-3, Urine WBC 5-10 H, Ur Epithelial Cells OCCAS, Urine Bacteria MANY H, Urine Hemoglobin TRACE-INTACT, Urine Glucose NEG 12/09/17 1900: Troponin I < 0.01 12/09/17 1514: Anion Gap 13, Estimated GFR > 60, BUN/Creatinine Ratio 21.4, Glucose 124 H, Calcium 9.6, Total Bilirubin 0.4, AST 24, ALT 22, Alkaline Phosphatase 66, Troponin I < 0.01, Total Protein 7.1, Albumin 4.1, Globulin 3.0, Albumin/ Globulin Ratio 1.4, CBC w Diff NO MAN DIFF REQ, RBC 4.42, MCV 82.7, MCH 27.6, MCHC 33.4, RDW 14.9 H, MPV 7.7, Gran % 81.9 H, Lymphocytes % 13.3 L, Monocytes % 3.3, Eosinophils % 0.5, Basophils % 1.0, Absolute Granulocytes 6.2, Absolute Lymphocytes 1.0 L, Absolute Monocytes 0.3, Absolute Eosinophils 0, Absolute Basophils 0.1 Microbiology 12/10 0040 URINE ROUT: Urine Culture - RECD Diagnostic Data Other Results CT HEAD WO IV CONTRAST FINDINGS: There is no evidence of acute intracranial hemorrhage or territorial infarction. No abnormal mass effect or midline shift is seen. Carson to white matter differentiation is well preserved. No extra-axial fluid collections are identified. Lacunar infarct versus prominent perivascular space in the right basal ganglia remains stable. There is atrophy with prominence of the ventricles and the sulci and hypodensity of the periventricular white matter due to chronic small vessel ischemic disease. There is vascular calcifications of the internal carotid arteries bilaterally. The osseous structures and soft tissues are normal. The mastoid air cells and visualized portions of the paranasal sinuses are well aerated. IMPRESSION: No acute intracranial pathology. Assessment/Plan Assessment: 87-year-old woman past medical history significant for rheumatoid arthritis on chronic prednisone, hypertension, osteoarthritis, first-degree AV block, stage I diastolic CHF brought in by family as she was noted to have multiple episodes of vomiting of 1 day duration prior to admission. Her primary care doctor retired and they brought her in because they were worried that she might be dehydrated. Problem list: Vomiting Multiple falls Asymptomatic bacteriuria Rheumatoid arthritis on chronic prednisone Hypertension Stage I diastolic Plan: Persistent symptoms might possibly secondary to dehydration secondary to overdiuresis along with loss of fluid secondary to vomiting Admit to general medicine floor, vitals per protocol, gentle IV fluids If she is continues to be dizzy, orthostatic in the morning We will continue to follow her off of antibiotics for now, We will hold her Lasix for now and continue her home meds DVT prophylaxis subcu Lovenox When I spoke to the patient she was alert and oriented to person place and time. And she was aware of her reason for her admission and she verbalized to me that she would like to be DNR/DNI As Ranked By This Provider Problem List: 1. Unsteady gait 2. Frequent falls Core Measures/Misc (01/27) Acute Coronary Syndrome ACS Diagnosis: No Congestive Heart Failure Congestive Heart Failure Diagnosis No Cerebrovascular Accident CVA/TIA Diagnosis: No VTE (View Protocol) VTE Risk Factors Age>40 No Mechanical VTE Prophylaxis d/t N/A MechProphylax Ordered No VTE Pharm Prophylaxis d/t NA PharmProphylax ordered Sepsis (View protocol) Sepsis Present: No If YES complete Sepsis Event Note If YES complete Sepsis Event Note Ethan WHITE,Kristi 12/10/175: Core Measures/Misc (01/27) Sepsis (View protocol) If YES complete Sepsis Event Note If YES complete Sepsis Event Note Attending MD Review Statement Attending Statement Attending MD Statement: examined this patient, discuss w/resident/PA/SOFTWARE ASSET MANAGER, agreed w/resident/PA/SOFTWARE ASSET MANAGER
[2017-12-10 00:06] VITALS: BP 168/84
[2017-12-10 06:11] VITALS: BP 142/82
--- NOTE | 2017-12-10 11:03 | PN- Housestaff ---
Eleonora Urbina 12/10/17 1102: Subjective Follow-up For: Vomiting and increased urinary frequency Subjective: She was examined at bedside. She reported no complaints. The patient knows she is in the [facility] but she cannot tell who the entry level manager is and thinks this is still the year 1964. She reported her increased urinary frequency has resolved. She denies fever, chills, shortness of breath, dizziness, diarrhea, constipation. Review of Systems Constitutional: Reports: see HPI. Objective Last 24 Hrs of Vital Signs/I&O Vital Signs Date Time Temp Pulse Resp B/P B/P Pulse O2 O2 Flow FiO2 Mean Ox Delivery Rate 12/13 1500 98.6 60 20 150/62 97 Room Air 12/13 0809 60 142/82 12/13 0646 98.4 60 20 142/82 96 / 2100 98.0 62 24 160/80 96 Intake & Output 12/13 1600 12/13 0800 12/13 0000 Intake Total 120 425 Output Total Balance 120 425 Intake, Oral 120 425 Output, Urine Physical Exam General Appearance: Alert, Cooperative, No Acute Distress Skin: No Rashes Skin Temp/Moisture Exam: Warm/Dry Neck: Supple Cardiovascular: Regular Rate, Normal S1, Normal S2 Lungs: Clear to Auscultation Abdomen: Soft Assessment/Plan Assessment: 87-year-old woman past medical history significant for rheumatoid arthritis on chronic prednisone, hypertension, osteoarthritis, first-degree AV block, stage I diastolic CHF admitted to the GM floor for multiple episodes of vomiting, multiple falls, increased urinary frequency. The patient is alert and oriented to place and person. She is still not oriented to time and thinks this is the year 2015. Yesterday, she thought we are in 1964. She was able to correctly tell her date of. She is still mildly and pleasantly confused however reports no symptoms at all except for a mild shoulder pain. She has had a couple of epidsodes of bradycardia with her lowest recorded HR at 46. Problem list: 1.Vomiting 2.Multiple falls 4.Asymptomatic bacteriuria 4.Rheumatoid arthritis on chronic prednisone 5.Hypertension PLAN -gentle IV fluids -We are holding off on antibiotics as her symptoms have resolved -F/u urine cultures. -We will have a PT consult in the am to decide on the dischaege course DVT prophylaxis subcu Lovenox CODE STATUS: DNR/DNI Problem List: 1. Weakness 2. Disorientation Pain Ratin Pain Location: na Pain Goal: Remain pain free Pain Plan: na Tomorrow's Labs & Rationales: none Homer Nicole 12/10/17 1414: Attending MD Review Statement Attending Statement Attending MD Statement: examined this patient, discuss w/resident/PA/LEASING SPECIALIST, agreed w/resident/PA/LEASING SPECIALIST, discussed with family, reviewed EMR data (avail), discussed with nursing, discussed with case mgmt, reviewed images, amended to note Attending Assessment/Plan: 87-year-old woman past medical history significant for rheumatoid arthritis on chronic prednisone, hypertension, osteoarthritis, first-degree AV block, stage I diastolic CHF brought in by family as she was noted to have multiple episodes of vomiting of 1 day duration prior to admission. Physical Exam General Appearance Alert (oriented to person, place), appears confused Skin No Significant Lesion HEENT Atraumatic, PERRLA, EOMI, Mucous Membr. moist/pink Cardiovascular Regular Rate, Normal S1, Normal S2 Lungs Clear to Auscultation, Normal Air Movement Abdomen Normal Bowel Sounds, Soft, No Tenderness Extremities No Edema ASSESSMENT 1. Dehydration 2. Multiple falls 3. Asymptomatic bacteriuria 4. Rheumatoid arthritis on chronic prednisone 5. Hypertension on diuretics. Plan: - Admit to general medicine floor, - gentle IV fluids - monitor off abx, f/u urine culture. - held lasix - DVT prophylaxis subcu Lovenox - PT consult. Placement issues. Case management.
--- NOTE | 2017-12-10 14:07 | Patient Discharge Instructions ---
Discharge Instructions General Discharge Information Special Instructions: - Please follow up with your primary care physician within 1-2 weeks of discharge. Inform your primary care physician of this admission to [facility]. - Continue your current medications per discharge instructions. - Please watch for these problems: Fever, Chills, Nausea, Vomiting, Shortness of Breath, Productive Cough, Chest Pain/Discomfort, Abdominal Pain, Active Bleeding or Bloody urine/stool. Diet Continue normal diet: Yes Activity Full Activity/No Limits: Yes Acute Coronary Syndrome Inclusion Criteria At DC or during hospital stay patient has or had the following: ACS DIAGNOSIS No Discharge Core Measures Meds if any: Prescribed or Continued at Discharge Meds if any: NOT Prescribed or Continued at Discharge Congestive Heart Failure Inclusion Criteria At DC or during hospital stay patient has or had the following: CHF DIAGNOSIS No Discharge Core Measures Meds if any: Prescribed or Continued at Discharge Meds if any: NOT Prescribed or Continued at Discharge Cerebrovascular accident Inclusion Criteria At DC or during hospital stay patient has or had the following: CVA/TIA Diagnosis No Discharge Core Measures Meds if any: Prescribed or Continued at Discharge Meds if any: NOT Prescribed or Continued at Discharge Venous thromboembolism Inclusion Criteria VTE Diagnosis No VTE Type NONE VTE Confirmed by (Test) NONE Discharge Core Measures - Per Current guidelines, there needs to be overlap - treatment for the first 5 days of Warfarin therapy. - If discharged on Warfarin prior to 5 days of - overlap therapy, the patient will need to be - assessed for post discharge needs including - *Post discharge parental anticoagulation - *Warfarin and/or parental anticoagulation education - *Follow up date to check INR post discharge At least 5 days overlap therapy as Inpatient No Meds if any: Prescribed or Continued at Discharge Note: Overlap Therapy is Warfarin and Anticoagulant Meds if any: NOT Prescribed or Continued at Discharge
[2017-12-10 14:43] VITALS: BP 140/80
[2017-12-10 20:15] VITALS: BP 140/68
[2017-12-11 06:43] VITALS: BP 130/80
--- NOTE | 2017-12-11 12:00 | PN- Att Addend ---
Attending Addendum Attending Brief Note 87-year-old woman past medical history significant for rheumatoid arthritis on chronic prednisone, hypertension, osteoarthritis, first-degree AV block, stage I diastolic CHF brought in by family as she was noted to have multiple episodes of vomiting of 1 day duration prior to admission. No overnight complaints. She is growing gram negative rods in urine. Afebrile. ASSESSMENT 1. Dehydration with vomiting 2. Multiple falls 3. UTI 4. Rheumatoid arthritis on chronic prednisone 5. Hypertension on diuretics. Plan: - Admit to general medicine floor, - gentle IV fluids - PO abx, f/u final urine culture/sensitvity. - held lasix - DVT prophylaxis subcu Lovenox - PT consult STR at discharge. Anticipate discharge tomorrow. Admission Meds I reviewed the following Meds: Current Medications Sig/Lisa Start time Last Medication Dose Stop Time Status Admin Aspirin Buffered 81 MG DAILY 12/10 0900 AC 12/11 (Ecotrin) 0949 Cephalexin 250 MG Q6 12/11 1200 AC (Keflex) Enoxaparin Sodium 40 MG DAILY 12/10 0900 AC 12/11 (Lovenox) 0953 Lisinopril 20 MG DAILY 12/10 0330 AC 12/10 (Prinivil) 0857
--- NOTE | 2017-12-11 13:13 | PN- Housestaff ---
Subjective Follow-up For: Dehydration and altered mental status Subjective: She was examined at bedside. She reported no complaints. The patient was vented to place and person, but was still not oriented to time. She reported her increased urinary frequency has resolved. She denies fever, chills, shortness of breath, dizziness, diarrhea, constipation Review of Systems Constitutional: Reports: see HPI. Objective Last 24 Hrs of Vital Signs/I&O Vital Signs Date Time Temp Pulse Resp B/P B/P Pulse O2 O2 Flow FiO2 Mean Ox Delivery Rate 12/12 0626 98.0 55 20 160/72 96 Room Air 12/11 2221 99.2 73 20 140/80 96 Room Air 12/11 1436 98.3 68 20 165/90 95 Room Air 12/11 0930 51 130/80 Intake & Output 12/12 0800 12/12 0000 12/11 1600 Intake Total 825 Output Total Balance 825 Intake, IV 525 Intake, Oral 300 Number 0 0 Bowel Movements Patient 158 lb Weight Physical Exam General Appearance: Alert, Oriented X3, Cooperative Assessment/Plan Assessment: 87-year-old woman past medical history significant for rheumatoid arthritis on chronic prednisone, hypertension, osteoarthritis, first-degree AV block, stage I diastolic CHF admitted to the GM floor for multiple episodes of vomiting, multiple falls, increased urinary frequency. The patient is alert and oriented to place and person. She is still not oriented to time and thinks this is the year 2015. Yesterday, she thought we are in 1965. She was able to correctly tell her date of. She is still mildly and pleasantly confused however reports no symptoms at all except for a mild shoulder pain. She has had a couple of epidsodes of bradycardia with her lowest recorded HR at 46. Problem list: 1.Vomiting 2.Multiple falls 4.Asymptomatic bacteriuria 4.Rheumatoid arthritis on chronic prednisone 5.Hypertension PLAN -gentle IV fluids -We will start her on p.o. cefazolin pending final urine culture/sensitvity. -We are holding on her antihypertensive medications for now given her bradycardia - PT consult STR at discharge. We are anticipating discharge tomorrow. - DVT prophylaxis subcu Lovenox CODE STATUS: DNR/DNI Problem List: 1. Frequent falls 2. Unsteady gait 3. Asymptomatic bacteriuria 4. Dementia Pain Ratin Pain Location: na Pain Goal: Pain 4 or less Pain Plan: pathway Tomorrow's Labs & Rationales: na
[2017-12-11 14:36] VITALS: BP 165/90
[2017-12-11 22:21] VITALS: BP 140/80
[2017-12-12 06:26] VITALS: BP 160/72
--- NOTE | 2017-12-12 07:32 | PN- Housestaff ---
Eleonora Urbina 12/12/17 0731: Subjective Follow-up For: vomitimg and falls Subjective: Patient was examined at bedside. She has no complaints overnight she is more alert and oriented today. She wanted to know if it is necessary for her to go to the rehab. We reassured her that it would make her stronger and help her be more independent in her daily activities. She does complain of some new onset left shoulder pain. She denies fever, chills, nausea, vomiting, diarrhea, constipation. Review of Systems Constitutional: Reports: see HPI. Objective Last 24 Hrs of Vital Signs/I&O Vital Signs Date Time Temp Pulse Resp B/P B/P Pulse O2 O2 Flow FiO2 Mean Ox Delivery Rate 12/12 1011 68 160/72 12/12 0626 98.0 55 20 160/72 96 Room Air 12/11 2221 99.2 73 20 140/80 96 Room Air 12/11 1436 98.3 68 20 165/90 95 Room Air Intake & Output 12/12 1600 12/12 0800 12/12 0000 Intake Total Output Total Balance Number 0 0 Bowel Movements Physical Exam General Appearance: Alert, Oriented X3, Cooperative, No Acute Distress Neck: Supple Cardiovascular: Regular Rate, Normal S1, Normal S2 Lungs: Clear to Auscultation Abdomen: Soft Extremities: mild tenderness in the let shoulder Assessment/Plan Assessment: 87-year-old woman past medical history significant for rheumatoid arthritis on chronic prednisone, hypertension, osteoarthritis, first-degree AV block, stage I diastolic CHF admitted to the floor for multiple episodes of vomiting, multiple falls, increased urinary frequency. The patient is alert and oriented to place and person. She thought that the year is 2008. She does remember the short the same question yesterday and states that she is not disoriented but she just does not pay attention. Her blood pressure was little elevated in the morning. Problem list: 1.Vomiting 2.Multiple falls 4.Asymptomatic bacteriuria 4.Rheumatoid arthritis on chronic prednisone 5.Hypertension PLAN -Discontinue iv fluids -We will discharge her on p.o. Keflex pending final urine culture/sensitvity. -We are resuming her blood pressure medications today -Awaiting discharge pending availability for accommodation in the [facility] - DVT prophylaxis subcu Lovenox CODE STATUS: DNR/DNI Problem List: 1. Unstable gait 2. Asymptomatic bacteriuria 3. Dementia Pain Ratin Pain Location: left shoulder Pain Goal: Remain pain free Pain Plan: pathway Tomorrow's Labs & Rationales: kayleigh ZuluagaHomer walsh 12/12/17 1144: Attending MD Review Statement Attending Statement Attending MD Statement: examined this patient, discuss w/resident/PA/SURG PHYSICIAN ASST, agreed w/resident/PA/SURG PHYSICIAN ASST, discussed with family, reviewed EMR data (avail), discussed with nursing, discussed with case mgmt, reviewed images, amended to note Attending Assessment/Plan: 87-year-old woman past medical history significant for rheumatoid arthritis on chronic prednisone, hypertension, osteoarthritis, first-degree AV block, stage I diastolic CHF brought in by family as she was noted to have multiple episodes of vomiting of 1 day duration prior to admission. No overnight complaints. She is growing gram negative rods in urine. Afebrile. ASSESSMENT 1. Dehydration with vomiting 2. Multiple falls 3. UTI 4. Rheumatoid arthritis on chronic prednisone 5. Hypertension on diuretics. Plan: - Discontinued IV fluids - PO abx, f/u final urine culture/sensitvity. - Lasix resume at discharge - DVT prophylaxis subcu Lovenox - PT consult STR at discharge. Anticipate discharge as bed available. Update family.
--- NOTE | 2017-12-12 07:51 | Discharge Summary ---
Visit Information Visit Dates Admission Date: 12/09/17 Discharge Date: 12/14/2017 Hospital Course Course Attending Physician: Homer Nicole MD Primary Care Physician: Adeline Olguin Hospital Course: 87-year-old woman past medical history significant for rheumatoid arthritis on chronic prednisone, hypertension, osteoarthritis, first-degree AV block, stage I diastolic CHF brought in by family as she was noted to have multiple episodes of vomiting of 1 day duration prior to admission. Her primary care doctor retired and they brought her in because they were worried that she might be dehydrated. Vital Signs Date Time Temp Pulse Resp B/P B/P Pulse O2 O2 Flow FiO2 Mean Ox Delivery Rate 12/10 0006 98.0 65 20 168/84 95 Room Air 12/09 2221 98.5 56 18 170/70 98 Room Air 12/09 1905 98.4 63 18 171/72 97 Room Air 12/09 1804 Room Air 12/09 1738 98.8 56 18 164/73 96 12/09 1500 97.0 70 16 175/90 99 Room Air Physical examination was unremarkable . Patient was admitted to general medicine floor for vomiting, weakness. She received IV fluids and a urine culture was obtained which was positive for pansensitive Escherichia coli. She did receive cephalexin for only 2 days. She remained afebrile with no leukocytosis during hospital stay. Physical therapy consult was obtained and recommendation was patient to be discharged to SNF. No changes on med to her medication regimen for chronic condition. Allergies: Coded Allergies: epinephrine (UNKNOWN PER PT 06/04/16) Disposition Summary Disposition Principal Diagnosis: Vomiting Weakness Additional Diagnosis: Asymptomatic bacteriuria Discharge Disposition: SNF Discharge Instructions General Discharge Information Code Status: Do Not Resucitate/Intubat Patient's Diet: regular Patient's Activity: As Tolerated Follow-Up Instructions/Appts: f/u PCP within 1 week Medications at Discharge Discharge Medications: Continue taking these medications: Enalapril Maleate (Enalapril Maleate) 20 MG TABLET 1 Tablet ORAL DAILY Qty = 90 Comments: LISINOPRIL 20 MG DAILY GIVEN IN HOSPITAL Last Taken: 12/14/17 Time: 1000 Furosemide (Lasix) 40 MG TABLET 1 Tablet ORAL DAILY Qty = 30 Comments: IV LASIX 40 MG GIVEN IN HOSPITAL Last Taken: 02/20/17 Time: 0950 Prednisone (Prednisone) 5 MG TABLET 0 ORAL TAPER Qty = 30 Instructions: On Take 02/20-02/25 2 TABLETS TWICE A DAY THEN CONTINUE TAKING 1 TABLET DAILY Comments: Last Taken: 12/14/17 Time: 1000 AM Aspirin (Ecotrin*) 81 MG TABLET. 1 Tablet ORAL DAILY Comments: Last Taken: 12/14/17 Time: 1000 AM Copies To: Adeline Olguin Attending MD Review Statement Documenting Attending: Corey WHITE,Homer Other Findings: She had xray of shoulder prior to dsicharge which is negative for acute pathology. She has R/A and pain controlled. She is medically stable for discharge to facility. Follow up with PCP in 1-2 weeks of discharge.
[2017-12-12 14:37] VITALS: BP 130/60
[2017-12-12] MEDS ORDERED: CEPHALEXIN250 M2 PO (15:06)
[2017-12-12 21:00] VITALS: BP 160/80
[2017-12-13 06:46] VITALS: BP 142/82
--- NOTE | 2017-12-13 07:27 | PN- Housestaff ---
Eleonora Urbina 12/13/17 0727: Subjective Follow-up For: vomiting and weakness Subjective: Patient was seen and examined at bedside. She is sitting in the chair and looks much better. She had no complaints except for severe shoulder pain and extremely limited range of motion. She states that the pain began a week ago, and was getting better except for today when she cannot move her arm at home. She states she had an warm compresses on her arm at night and it seemed to help. However the pain came back strong this morning. She denies fever, chills, nausea, vomiting, headache, increased urinary frequency, diarrhea, constipation. Review of Systems Constitutional: Reports: see HPI. Objective Last 24 Hrs of Vital Signs/I&O Vital Signs Date Time Temp Pulse Resp B/P B/P Pulse O2 O2 Flow FiO2 Mean Ox Delivery Rate 12/13 0809 60 142/82 12/13 0646 98.4 60 20 142/82 96 12/12 2100 98.0 62 24 160/80 96 12/12 1619 Room Air 12/12 1600 Room Air 12/12 1437 98.4 62 16 130/60 98 Room Air Intake & Output 12/13 1600 12/13 0800 12/13 0000 Intake Total 120 425 Output Total Balance 120 425 Intake, Oral 120 425 Output, Urine Physical Exam General Appearance: Alert, Oriented X3, Cooperative, Moderate Distress Skin: No Rashes, No Breakdown Neck: Supple Cardiovascular: Regular Rate, Normal S1, Normal S2, short systolic murumur Lungs: Clear to Auscultation Abdomen: Soft, No Tenderness Extremities: diffuse 2+ swelling on left shoulder with extremely limited range of motion. The patient winces in pain even at the slightest touch. Assessment/Plan Assessment: 87-year-old woman past medical history significant for rheumatoid arthritis on chronic prednisone, hypertension, osteoarthritis, first-degree AV block, stage I diastolic CHF admitted to the floor for multiple episodes of vomiting, multiple falls, increased urinary frequency. The patient is alert and oriented to place and person. She complains of severe left shoulder pain today.According to her, it suddenly worsened in the morning today after she slept with a warm stocking under her shouder last night. On examination, the shoulder is exquisitely tender to touch, with very limited range of motion. Problem list: 1.Multiple falls 2.Asymptomatic bacteriuria 3.Rheumatoid arthritis on chronic prednisone 4.Hypertension 5.Severe left shoulder pain PLAN -x-ray left shoulder. Consider ortho consult -Pain management -We have discontinued her antibiotics following discusison with . -We reseumed her blood pressure medications yesterday. -Anticipating discharge to [facility] today pending Xray report. - DVT prophylaxis subcu Lovenox CODE STATUS: DNR/DNI Problem List: 1. Dementia 2. Asymptomatic bacteriuria 3. Left shoulder pain Pain Ratin Pain Location: left shoulder Pain Goal: Pain 4 or less Pain Plan: pathway Tomorrow's Labs & Rationales: kayleigh ZuluagaHomer walsh 12/13/17 1130: Attending MD Review Statement Attending Statement Attending MD Statement: examined this patient, discuss w/resident/PA/MANAGER MATERIALS MANAGEMENT, agreed w/resident/PA/MANAGER MATERIALS MANAGEMENT, discussed with family, reviewed EMR data (avail), discussed with nursing, discussed with case mgmt, reviewed images, amended to note Attending Assessment/Plan: 87-year-old woman past medical history significant for rheumatoid arthritis on chronic prednisone, hypertension, osteoarthritis, first-degree AV block, stage I diastolic CHF brought in by family as she was noted to have multiple episodes of vomiting of 1 day duration prior to admission. Overnight c/o shoulder pain left with diffciult range of motion. Obtain xray shoulder. E coli pansensitive in urine culture. ASSESSMENT 1. Dehydration with vomiting 2. Multiple falls 3. Pansensitive E coli urine culture. 4. Rheumatoid arthritis on chronic prednisone 5. Hypertension on diuretics. Plan: - Xray left sholuder, ortho consult. - Lasix resume at discharge - DVT prophylaxis subcu Lovenox - PT consult [facility] at discharge. Anticipate discharge as bed available/shoulder pain improves. Update family.
--- NOTE | 2017-12-13 12:22 | RADIOLOGY REPORT ---
EXAMINATION: XR SHOULDER, LEFT CLINICAL INFORMATION: 87-year-old female presented with left shoulder pain and limited range of motion of left arm. COMPARISON: Radiographs of the left shoulder done on 02/21/2017. TECHNIQUE: 3 views of the left shoulder. FINDINGS: The glenohumeral alignment is intact. Severe osteoarthrosis is noted at the glenohumeral joint with loss of subacromial space, consistent with chronic rotator cuff tendon tear. Postsurgical changes of rotator cuff tendon repair is noted within the superolateral aspect of the humeral head. Widening of the left acromioclavicular joint is noted, appears chronic, similar to prior study. No superimposed fracture, subluxation or dislocation is seen. The visualized left hemithoracic lung parekh are clear. Overall, no significant change since 02/20/2017. IMPRESSION: Stable appearance of the left glenohumeral and acromioclavicular joints, unchanged since 02/20/2017. Specifically, no radiographic evidence of any superimposed acute fracture, dislocation or subluxation present.
[2017-12-13 15:00] VITALS: BP 150/62
[2017-12-13 23:00] VITALS: BP 170/70
--- NOTE | 2017-12-14 05:13 | PN- Housestaff ---
CarlitosEleonora 12/14/17 0513: Subjective Follow-up For: ASYMTOAMTIC BACTEURIA AND LEFT SHOULDER PAIN Subjective: Frankie was seen and examined at bedside. She appeared to be in good spirits and is looking forward to going to the rehab today. She had no complaints overnight. She reports that the pain in her shoulder is a lot better. She regained some range of motion today. She was constipated but she did have a bowel movement yesterday. She denies fever, chills, nausea, vomiting, diarrhea, chest pain or shortness of breath. Review of Systems Constitutional: Reports: see HPI. Objective Last 24 Hrs of Vital Signs/I&O Vital Signs Date Time Temp Pulse Resp B/P B/P Pulse O2 O2 Flow FiO2 Mean Ox Delivery Rate 12/14 0621 97.2 57 20 150/76 96 Room Air 12/13 2300 97.9 58 18 170/70 96 Room Air 12/13 1500 98.6 60 20 150/62 97 Room Air 12/13 0809 60 142/82 12/13 0646 98.4 60 20 142/82 96 Intake & Output 12/14 0800 12/14 0000 12/13 1600 Intake Total 240 120 Output Total Balance 240 120 Intake, Oral 240 120 Physical Exam General Appearance: Alert, Oriented X3, Cooperative, Mild Distress Skin: No Rashes Neck: Supple Cardiovascular: Regular Rate, Normal S1, Normal S2 Lungs: Clear to Auscultation Extremities: left shoulder swollen, tenderness has decreased overnight, range of motion limited Assessment/Plan Assessment: 87-year-old woman past medical history significant for rheumatoid arthritis on chronic prednisone, hypertension, osteoarthritis, first-degree AV block, stage I diastolic CHF admitted to the [facility] floor for multiple episodes of vomiting, multiple falls, increased urinary frequency. The patient is alert and oriented to place and person. She is looking forward to going to the rehab today. The pain in her shoulder is better than yesterday. She can move her shoulder which is an improvemrnt from yesterday when she could not move it at all. ROM is still limited. The patient was constipated. However, she did have a bowel movement yesterday. Problem list: 1.Multiple falls 2.Asymptomatic bacteriuria 3.Rheumatoid arthritis on chronic prednisone 4.Hypertension 5.Severe left shoulder pain PLAN -x-ray left shoulder. Consider ortho consult -Pain management -We have discontinued her antibiotics following discusison with . -Anticipating discharge to [facility] today. - DVT prophylaxis subcu Lovenox CODE STATUS: DNR/DNI Problem List: 1. Left shoulder pain 2. Asymptomatic bacteriuria 3. Osteoarthritis 4. Unsteady gait Pain Ratin Pain Location: left shoulder Pain Goal: Pain 4 or less Pain Plan: pathway Tomorrow's Labs & Rationales: Homer Bueno 12/14/17 1100: Attending MD Review Statement Attending Statement Attending MD Statement: examined this patient, discuss w/resident/PA/DIMENSIONAL INTEGRATION ENGINEER, agreed w/resident/PA/DIMENSIONAL INTEGRATION ENGINEER, discussed with family, reviewed EMR data (avail), discussed with nursing, discussed with case mgmt, reviewed images, amended to note Attending Assessment/Plan: She had xray of shoulder which is negative for acute pathology. She has R/A and pain controlled. She is medically stable for discharge to facility. Inform case management. Follow up with PCP in 1-2 weeks of discharge.
[2017-12-14 06:21] VITALS: BP 150/76
[2017-12-14 12:02] VITALS: BP 138/66
== END 2017-12-14 13:27 | DRG 690 ==
LOC: ERH 14:56 → 2NA 22:01 → ERHI 22:01 → ENRESERV 23:23 → 2NA 23:47 → ENPENDDIS 12-14 10:50 → 2NA 12-14 13:27
PROVIDERS: Physician Assistant
DX: N39.0 Urinary tract infection, site not specified (principal); I50.32 Chronic diastolic (congestive) heart failure; E86.0 Dehydration; M06.9 Rheumatoid arthritis, unspecified; R26.81 Unsteadiness on feet; I11.0 Hypertensive heart disease with heart failure; W19.XXXA Unspecified fall, initial encounter; Z91.81 History of falling; R82.71 Bacteriuria; R53.1 Weakness; I45.10 Unspecified right bundle-branch block; F03.90 Unspecified dementia, unspecified severity, without behavioral disturbance, psychotic disturbance, mood disturbance, and anxiety; R11.10 Vomiting, unspecified; B96.20 Unspecified Escherichia coli [E. coli] as the cause of diseases classified elsewhere; Z88.8 Allergy status to other drugs, medicaments and biological substances; Z79.82 Long term (current) use of aspirin; Z79.52 Long term (current) use of systemic steroids; H26.9 Unspecified cataract; F41.9 Anxiety disorder, unspecified; Z90.710 Acquired absence of both cervix and uterus; Z96.653 Presence of artificial knee joint, bilateral; Z66 Do not resuscitate; M25.512 Pain in left shoulder
CPT/HCPCS: 2NASP; 36592; 73030-LT; 74176; 81001; 82436; 87086; 93005; 93010; 96374; 96376; 97110-GO; 97116-GO; 97161-GP; 97530-GO; J1650; J2405; J2920; J7040; J7512